=== PATIENT | male | born 1975 | race Caucasian/White ===

== ENCOUNTER 2021-02-07 13:34 | Inpatient (IN) ==
[2021-02-07] MEDS ORDERED: hydrALAZINE 20 mg/ml 1 ML Vial IV IV SLOW PU ONE (14:16)
[2021-02-07 15:40] LABS: Urine Appearance Cloudy; Urine Bilirubin Negative (Negative); Urine Blood 3+ (Negative); Urine Color Yellow; Urine Glucose Negative (Negative); Urine Ketones Negative (Negative); Urine Nitrite Negative (Negative); Urine Protein 2+(100 mg/dL) (Negative); Urine Urobilinogen Negative (Negative)
[2021-02-07 15:49] LABS: Urine Bacteria Absent (Absent); Urine Red Blood Cell 3+(>10/hpf) (Absent); Urine Squamous Epithelial Cell Present (Absent); Urine White Blood Cell 3+(>20/hpf) (Absent)
[2021-02-07 16:53] LABS: Hematocrit 23 % (42-52); Hemoglobin 7.5 g/dL (14.0-18.0); Mean Corpuscular HGB Conc 32 g/dL (31-36); Mean Corpuscular Hemoglobin 27 pg (27-31); Mean Corpuscular Volume 84 fL (80-94); Mean Platelet Volume 8.6 fL (7.4-10.4); Platelet Count 444 10^3/uL (150-450); Red Blood Count 2.74 10^6 /uL (4.18-5.48); Red Cell Distribution Width 17 % (10-15); White Blood Count 8.7 10^3/uL (3.5-10.8)
[2021-02-07 17:08] LABS: Ammonia 25 mcmol/L (16-53)
[2021-02-07 17:11] LABS: Albumin 2.6 g/dL (3.2-5.2); Albumin/Globulin Ratio 0.6 (1-3); Calcium 8.6 mg/dL (8.6-10.3); Globulin 4.3 g/dL (2-4); Magnesium 1.2 mg/dL (1.9-2.7); Total Bilirubin 0.3 mg/dL (0.2-1.0); Total Protein 6.9 g/dL (6.4-8.9)
[2021-02-07 17:12] LABS: Troponin I 0.01 ng/mL (<0.03)
[2021-02-07 17:14] LABS: Potassium 6.5 mmol/L (3.5-5.0)
[2021-02-07 17:16] LABS: Rapid COVID-19 Molecular Undetected (Undetected)
[2021-02-07 17:19] LABS: BNP 653 pg/mL (<=100)
[2021-02-07] MEDS ORDERED: cefTRIAXone 1 gm/50 mL NS BAG 1 GM/50 ML BAG IV ONE (17:24)
[2021-02-07 17:27] LABS: ABS Basophils 0.1 10^3/ul (0-0.2); ABS Eosinophils 0.1 10^3/ul (0-0.6); ABS Monocytes 1.1 10^3/ul (0-0.8); ABS Neutrophils 6.3 10^3/ul (1.5-7.7); Eosinophil % 1.7 %; Lymphocyte % 11.9 %
[2021-02-07] MEDS ORDERED: Magnesium Sulfate 2 gm BAG 2 GM/50 ML BAG IVPB ONE (17:27)
[2021-02-07] MEDS ORDERED: Dextrose 50% Syringe 50 ml 25 GM/50 ML SYRINGE IV PUSH ONE ×2 (17:28→17:29)
[2021-02-07] MEDS ORDERED: Sodium Bicarbonate 8.4% SYR 50 ml SYRINGE IV ONE (17:30)
[2021-02-07] MEDS: Patiromer POWDER 8.4 GM PAK PO ONE (19:37)
[2021-02-07 20:14] LABS: Calcium 8.5 mg/dL (8.6-10.3)
[2021-02-07 20:16] LABS: Potassium 5.4 mmol/L (3.5-5.0)
[2021-02-08] MEDS ORDERED: Lorazepam PYXIS KEY PRN ×3 (01:24→08:25)
[2021-02-08] MEDS ORDERED: LORazepam 2 mg VIAL 1 ml IV PUSH ONE ×4 (01:24→09:13)
[2021-02-08] MEDS ORDERED: cefTRIAXone 1 gm/50 mL NS BAG 1 GM/50 ML BAG ONE (01:30)
[2021-02-08 01:47] LABS: Calcium 8.8 mg/dL (8.6-10.3)
[2021-02-08 01:59] LABS: Potassium 6.1 mmol/L (3.5-5.0)
[2021-02-08] MEDS ORDERED: cefTRIAXone 1 gm/50 mL NS BAG 1 GM/50 ML BAG IVPB SCH (02:00)
[2021-02-08] MEDS ORDERED: Dextrose 50% Syringe 50 ml 25 GM/50 ML SYRINGE IV PUSH ONE ×3 (02:04→20:50)
[2021-02-08] MEDS ORDERED: Calcium Gluconate 1 GM/10 ML VIAL (in Pyxis) IV PUSH ONE (02:06)
[2021-02-08] MEDS ORDERED: Patiromer POWDER 8.4 GM PAK PO ONE (02:08)
[2021-02-08] MEDS ORDERED: SODIUM POLYSTYRENE SULFONATE PO SCH (02:15)
[2021-02-08] MEDS ORDERED: CALCIUM GLUCONATE 1GM/50ML NS BAG IV ONE (03:30)
[2021-02-08] MEDS ORDERED: Vancomycin 1,000 MG in NS 0.9% 250 ml 250 ML IVPB ONE (04:19)
[2021-02-08 04:26] LABS: Calcium 9.4 mg/dL (8.6-10.3)
[2021-02-08] MEDS ORDERED: NS 0.9% 1000 ml BAG 1,000 ML IV SCH (04:30)
[2021-02-08] MEDS ORDERED: NS 0.9% IV ONE (04:30)
[2021-02-08 04:42] LABS: Potassium 5.3 mmol/L (3.5-5.0)
[2021-02-08] MEDS ORDERED: Vancomycin per Pharmacy 1 EA NOTE FOLLOW UP SCH (05:00)
[2021-02-08 05:27] LABS: Hematocrit 23 % (42-52); Hemoglobin 7.6 g/dL (14.0-18.0); Mean Corpuscular HGB Conc 33 g/dL (31-36); Mean Corpuscular Hemoglobin 28 pg (27-31); Mean Corpuscular Volume 85 fL (80-94); Mean Platelet Volume 8.4 fL (7.4-10.4); Platelet Count 415 10^3/uL (150-450); Red Blood Count 2.76 10^6 /uL (4.18-5.48); Red Cell Distribution Width 17 % (10-15); White Blood Count 8.1 10^3/uL (3.5-10.8)
[2021-02-08 05:30] LABS: ABS Basophils 0.1 10^3/ul (0-0.2); ABS Monocytes 0.9 10^3/ul (0-0.8); Eosinophil % 0.5 %; Lymphocyte % 12.7 %
[2021-02-08 05:42] LABS: Magnesium 1.8 mg/dL (1.9-2.7)
[2021-02-08 05:58] LABS: C Reactive Protein 120.86 mg/L (<8.01)
[2021-02-08] MEDS: Patiromer POWDER 8.4 GM PAK PO ONE (06:11)
[2021-02-08] MEDS ORDERED: Magnesium Sulfate 2 gm BAG 2 GM/50 ML BAG IVPB ONE (07:19)
[2021-02-08] MEDS ORDERED: Cefepime 1 GM in Dextrose 1 GM/50 ML BAG IV SCH (07:30)
[2021-02-08 07:31] LABS: Calcium 8.9 mg/dL (8.6-10.3)
[2021-02-08 07:32] LABS: Potassium 5.9 mmol/L (3.5-5.0)
[2021-02-08] MEDS ORDERED: Lorazepam PYXIS KEY ONE (08:36)
[2021-02-08] MEDS ORDERED: Haloperidol 5 mg/ml SDV IV/IM 5 MG/ML AMP IV SLOW PU PRN (10:31)
[2021-02-08] MEDS ORDERED: Morphine 2 MG/ML SYRINGE IV PRN (10:41)
[2021-02-08] MEDS: Sodium Polystyrene ORAL.SUSP 15 GM/60 ML BTL PO ONE (10:48)
[2021-02-08] MEDS ORDERED: Sodium Bicarbonate 8.4% SYR 50 ml SYRINGE IV ONE (11:00)
[2021-02-08 11:44] LABS: Calcium 8.4 mg/dL (8.6-10.3); Potassium 5.4 mmol/L (3.5-5.0)
[2021-02-08 13:05] LABS: INR 1.26 (0.86-1.15)
[2021-02-08] MEDS ORDERED: fentaNYL 100 mcg/2 ml 50 MCG/ML VIAL ONE (15:12)
[2021-02-08] MEDS ORDERED: Midazolam 2 mg/2 ml VIAL 1 mg/ml 2 ml VIAL (2 mg) ONE (15:12)
[2021-02-08] MEDS ORDERED: Piperacillin/Tazobac ADVAN 3.375 GM in NS 0.9% 100 ml BAG 100 ML IV ONE (17:13)
[2021-02-08] MEDS ORDERED: Morphine 2 MG/ML SYRINGE IV ONE (17:22)
[2021-02-08] MEDS ORDERED: Morphine 2 MG/ML SYRINGE ONE (17:23)
[2021-02-08] MEDS ORDERED: Zosyn per Pharmacy NOTE FOLLOW UP SCH (18:00)
[2021-02-08 20:23] LABS: Urine Appearance Turbid; Urine Bilirubin Negative (Negative); Urine Blood 3+ (Negative); Urine Color Yellow; Urine Glucose Negative (Negative); Urine Ketones Negative (Negative); Urine Nitrite Negative (Negative); Urine Protein 2+(100 mg/dL) (Negative); Urine Specific Gravity 1.014 (1.002-1.030); Urine Urobilinogen Negative (Negative)
[2021-02-08] MEDS ORDERED: Atropine 0.1 MG/ML 10 ml SYR (1 mg) ONE (20:23)
[2021-02-08 20:29] LABS: Urine Bacteria 1+ (Absent); Urine Red Blood Cell 3+(>10/hpf) (Absent); Urine White Blood Cell 3+(>20/hpf) (Absent)
[2021-02-08 20:40] LABS: Calcium 8.7 mg/dL (8.6-10.3)
[2021-02-08 20:49] LABS: Potassium 6.3 mmol/L (3.5-5.0)
[2021-02-08] MEDS ORDERED: Sodium Bicarb 8.4% Vial 50 ML 150 MEQ in D5W 1000 ml BAG 850 ML IV SCH (21:00)
[2021-02-08] MEDS ORDERED: SODIUM ZIRCONIUM CYCLOSILICATE 10 GM PACKET PO SCH (21:00)
[2021-02-08] MEDS: Lactulose 30 ml UDC PO SCH (21:28)
[2021-02-08] MEDS: ZOSYN 3.375 GM Q12H per EXTENDED INFUSION IV SCH (23:07)
[2021-02-09 00:22] LABS: Magnesium 2.4 mg/dL (1.9-2.7)
[2021-02-09 00:26] LABS: Troponin I 0.01 ng/mL (<0.03)
[2021-02-09 00:28] LABS: Myoglobin 77.1 ng/mL (17.4-105.7)
[2021-02-09 01:11] LABS: Calcium 8.9 mg/dL (8.6-10.3)
[2021-02-09 01:23] LABS: Potassium 5.7 mmol/L (3.5-5.0)
[2021-02-09] MEDS ORDERED: Dextrose 50% Syringe 50 ml 25 GM/50 ML SYRINGE ONE (01:53)
[2021-02-09] MEDS: Dextrose 50% Syringe 50 ml 25 GM/50 ML SYRINGE IV PUSH PRN (02:01)
[2021-02-09 02:39] LABS: PCO2 Arterial 43 mmHg (35-45); PO2 Arterial 153 mmHg (80-100)
[2021-02-09 02:48] LABS: Hematocrit 22 % (42-52); Hemoglobin 7.2 g/dL (14.0-18.0); Mean Corpuscular HGB Conc 33 g/dL (31-36); Mean Corpuscular Hemoglobin 28 pg (27-31); Mean Corpuscular Volume 85 fL (80-94); Mean Platelet Volume 8.5 fL (7.4-10.4); Platelet Count 384 10^3/uL (150-450); Red Blood Count 2.53 10^6 /uL (4.18-5.48); Red Cell Distribution Width 18 % (10-15); White Blood Count 6.3 10^3/uL (3.5-10.8)
[2021-02-09 03:04] LABS: Calcium 8.6 mg/dL (8.6-10.3); Magnesium 2.2 mg/dL (1.9-2.7); Phosphorus 7.1 mg/dL (2.5-5.0)
[2021-02-09 03:06] LABS: Potassium 5.4 mmol/L (3.5-5.0)
[2021-02-09] MEDS ORDERED: Vancomycin Random Level NOTE FOLLOW UP ONE (05:00)
[2021-02-09] MEDS: SODIUM ZIRCONIUM CYCLOSILICATE 10 GM PACKET PO SCH ×3 (05:27→22:05)
[2021-02-09] MEDS ORDERED: Sodium Bicarb 8.4% Vial 50 ML 150 MEQ in D5W 1000 ml BAG 850 ML IV SCH (06:30)
[2021-02-09] MEDS: Lactulose 30 ml UDC PO SCH ×3 (07:59→22:11)
[2021-02-09] MEDS: Polyethylene Glycol 3350 17 GM PACKET PO SCH ×2 (07:59→08:03)
[2021-02-09] MEDS: Collagenase 250 units/gm OINT 1 tube TOPICAL SCH (08:00)
[2021-02-09] MEDS: ZOSYN 3.375 GM Q12H per EXTENDED INFUSION IV SCH ×2 (08:35→22:04)
[2021-02-09 08:39] LABS: Calcium 8.4 mg/dL (8.6-10.3); Potassium 5.4 mmol/L (3.5-5.0)
[2021-02-09] MEDS ORDERED: Lactated Ringers 500 ml BAG 500 ML IV ONE ×2 (08:56→16:51)
[2021-02-09] MEDS ORDERED: Cefepime 1 GM in Dextrose 1 GM/50 ML BAG IV SCH (09:00)
[2021-02-09 09:44] LABS: Calcium 8.5 mg/dL (8.6-10.3)
[2021-02-09 09:58] LABS: Potassium 5.2 mmol/L (3.5-5.0)
[2021-02-09 13:20] LABS: Calcium 8.3 mg/dL (8.6-10.3); Potassium 5.1 mmol/L (3.5-5.0)
[2021-02-09 18:44] LABS: Urine Creatinine Concentration 103.39 mg/dL
[2021-02-09 21:47] LABS: Calcium 8.1 mg/dL (8.6-10.3); Potassium 5.6 mmol/L (3.5-5.0)
[2021-02-09] MEDS ORDERED: Patiromer POWDER 8.4 GM PAK PO ONE (22:34)
[2021-02-10] MEDS: SODIUM ZIRCONIUM CYCLOSILICATE 10 GM PACKET PO SCH ×3 (05:21→15:45)
[2021-02-10] MEDS ORDERED: NS 0.9% IVPB SCH (09:00)
[2021-02-10] MEDS ORDERED: DAPTOMYCIN IVPB SCH (09:00)
[2021-02-10] MEDS: Lactulose 30 ml UDC PO SCH ×2 (09:47→21:42)
[2021-02-10] MEDS: Polyethylene Glycol 3350 17 GM PACKET PO SCH ×2 (09:47→21:47)
[2021-02-10 11:04] LABS: Anion Gap 12 mmol/L (2-11); Blood Urea Nitrogen 66 mg/dL (6-24); CO2 Carbon Dioxide 24 mmol/L (22-32); Calcium 7.7 mg/dL (8.6-10.3); Chloride 104 mmol/L (101-111); Glucose 108 mg/dL (70-100); Magnesium 1.9 mg/dL (1.9-2.7); Phosphorus 7.5 mg/dL (2.5-5.0); Potassium 4.7 mmol/L (3.5-5.0); Sodium 140 mmol/L (135-145)
[2021-02-10 11:11] LABS: % Iron Saturation 21 % (15-55); Iron 35 ug/dL (50-212); Total Iron Binding Capacity 164 mcg/dL (250-450); Transferrin 117 mg/dL (203-362); Unsaturated Iron Binding < 149 ug/dL
[2021-02-10 11:29] LABS: Ferritin 83.9 ng/mL (24-336)
[2021-02-10 11:31] LABS: Hematocrit 18 % (42-52); Mean Corpuscular HGB Conc 33 g/dL (31-36); Mean Corpuscular Hemoglobin 28 pg (27-31); Mean Corpuscular Volume 85 fL (80-94); Mean Platelet Volume 8.5 fL (7.4-10.4); Platelet Count 316 10^3/uL (150-450); Red Blood Count 2.12 10^6 /uL (4.18-5.48); Red Cell Distribution Width 17 % (10-15); White Blood Count 7.1 10^3/uL (3.5-10.8)
[2021-02-10] MEDS: Sodium Polystyrene ORAL.SUSP 15 GM/60 ML BTL PO ONE (15:44)
[2021-02-10 15:46] LABS: Hematocrit 21 % (42-52)
[2021-02-10] MEDS: ZOSYN 3.375 GM Q12H per EXTENDED INFUSION IV SCH (15:46)
[2021-02-10] MEDS ORDERED: Lactated Ringers 500 ml BAG 500 ML IV SCH (16:00)
[2021-02-10] MEDS ORDERED: Iron Sucrose 200 MG in NS 0.9% 100 ml BAG 100 ML IVPB ONE (17:22)
[2021-02-10] MEDS: Linezolid 600 MG IVPREMIX(*) 600 MG/300 ML BAG IVPB SCH (17:48)
[2021-02-10] MEDS ORDERED: Ciprofloxacin 400mg IVPREMIX 400 MG/200 ML BAG IVPB SCH ×2 (18:00→22:00)
[2021-02-10] MEDS: Collagenase 250 units/gm OINT 1 tube TOPICAL SCH (18:17)
[2021-02-10] MEDS ORDERED: ZOSYN 3.375 GM Q12H per EXTENDED INFUSION IV SCH (18:30)
[2021-02-10] MEDS ORDERED: Lactated Ringers 1000 ml BAG 1,000 ML IV ONE (20:06)
[2021-02-10 20:32] LABS: Hematocrit 21 % (42-52); Hemoglobin 7.3 g/dL (14.0-18.0)
[2021-02-10 20:37] LABS: PCO2 Arterial 48 mmHg (35-45); PO2 Arterial 90 mmHg (80-100)
[2021-02-10] MEDS ORDERED: Furosemide 40 mg/4 ml IV VIAL IV SLOW PU ONE (20:39)
[2021-02-10 20:49] LABS: Calcium 7.7 mg/dL (8.6-10.3); Potassium 4.8 mmol/L (3.5-5.0)
[2021-02-10] MEDS: Heparin 5000 UNITS/ML 1 mL VIAL SUBCUT SCH (21:42)
[2021-02-10 22:23] LABS: PCO2 Arterial 54 mmHg (35-45); PO2 Arterial 152 mmHg (80-100)
[2021-02-11] MEDS: Linezolid 600 MG IVPREMIX(*) 600 MG/300 ML BAG IVPB SCH ×2 (04:20→16:31)
[2021-02-11 04:38] LABS: Hematocrit 22 % (42-52); Mean Corpuscular HGB Conc 32 g/dL (31-36); Mean Corpuscular Hemoglobin 27 pg (27-31); Mean Corpuscular Volume 85 fL (80-94); Mean Platelet Volume 8.3 fL (7.4-10.4); Platelet Count 265 10^3/uL (150-450); Red Blood Count 2.55 10^6 /uL (4.18-5.48); Red Cell Distribution Width 17 % (10-15); White Blood Count 6.9 10^3/uL (3.5-10.8)
[2021-02-11 04:53] LABS: Calcium 7.7 mg/dL (8.6-10.3); Magnesium 1.8 mg/dL (1.9-2.7); Potassium 4.9 mmol/L (3.5-5.0)
[2021-02-11] MEDS: Heparin 5000 UNITS/ML 1 mL VIAL SUBCUT SCH ×3 (06:28→21:06)
[2021-02-11] MEDS: Collagenase 250 units/gm OINT 1 tube TOPICAL SCH (07:50)
[2021-02-11] MEDS: Lactulose 30 ml UDC PO SCH ×2 (07:50→21:06)
[2021-02-11] MEDS ORDERED: Cefepime 1 GM in Dextrose 1 GM/50 ML BAG IV SCH (08:00)
[2021-02-11] MEDS ORDERED: Cefepime ADVAN 1 GM in NS 0.9% 50 ML 50 ML IVPB SCH (08:00)
[2021-02-11] MEDS: Polyethylene Glycol 3350 17 GM PACKET PO SCH ×2 (08:23→20:57)
[2021-02-11] MEDS ORDERED: Ciprofloxacin 400mg IVPREMIX 400 MG/200 ML BAG IVPB SCH (09:00)
[2021-02-11] MEDS ORDERED: Zosyn per Pharmacy NOTE FOLLOW UP PRN (16:05)
[2021-02-11] MEDS ORDERED: ZOSYN 3.375 GM x ONE DOSE over 30 miuntes IV (17:00)
[2021-02-11] MEDS ORDERED: NS 0.9% 100 ml BAG 100 ML ONE (20:31)
[2021-02-11] MEDS: ZOSYN 3.375 GM Q12H per EXTENDED INFUSION IV SCH (21:14)
[2021-02-12 05:17] LABS: Hematocrit 23 % (42-52); Hemoglobin 7.5 g/dL (14.0-18.0); Mean Corpuscular HGB Conc 33 g/dL (31-36); Mean Corpuscular Hemoglobin 28 pg (27-31); Mean Corpuscular Volume 84 fL (80-94); Mean Platelet Volume 8.7 fL (7.4-10.4); Platelet Count 297 10^3/uL (150-450); Red Blood Count 2.68 10^6 /uL (4.18-5.48); Red Cell Distribution Width 17 % (10-15); White Blood Count 6.9 10^3/uL (3.5-10.8)
[2021-02-12 05:40] LABS: Calcium 7.9 mg/dL (8.6-10.3); Potassium 4.7 mmol/L (3.5-5.0)
[2021-02-12 05:56] LABS: ABS Basophils 0.1 10^3/ul (0-0.2); ABS Eosinophils 0.2 10^3/ul (0-0.6); ABS Monocytes 0.7 10^3/ul (0-0.8); ABS Neutrophils 4.8 10^3/ul (1.5-7.7); Eosinophil % 3.3 %; Lymphocyte % 15.1 %
[2021-02-12] MEDS: Linezolid 600 MG IVPREMIX(*) 600 MG/300 ML BAG IVPB SCH ×4 (07:46→21:44)
[2021-02-12] MEDS: Heparin 5000 UNITS/ML 1 mL VIAL SUBCUT SCH ×2 (07:54→14:10)
[2021-02-12] MEDS: Collagenase 250 units/gm OINT 1 tube TOPICAL SCH (07:55)
[2021-02-12] MEDS: Polyethylene Glycol 3350 17 GM PACKET PO SCH ×2 (07:55→21:40)
[2021-02-12] MEDS: Lactulose 30 ml UDC PO SCH ×2 (07:55→21:40)
[2021-02-12] MEDS: ZOSYN 3.375 GM Q12H per EXTENDED INFUSION IV SCH ×2 (10:08→22:30)
[2021-02-12] MEDS ORDERED: Furosemide 100 mg/10 ml IV VIAL IV ONE (11:39)
[2021-02-12] MEDS ORDERED: Furosemide 100 mg/10 ml IV VIAL ONE (11:42)
[2021-02-12] MEDS ORDERED: fentaNYL 100 mcg/2 ml 50 MCG/ML VIAL ONE (15:58)
[2021-02-12] MEDS ORDERED: NS 0.9% 100 ml BAG 100 ML ONE (21:35)
[2021-02-13 04:36] LABS: Hematocrit 24 % (42-52); Hemoglobin 7.8 g/dL (14.0-18.0); Mean Corpuscular HGB Conc 33 g/dL (31-36); Mean Corpuscular Hemoglobin 28 pg (27-31); Mean Corpuscular Volume 85 fL (80-94); Mean Platelet Volume 8.5 fL (7.4-10.4); Platelet Count 295 10^3/uL (150-450); Red Blood Count 2.79 10^6 /uL (4.18-5.48); Red Cell Distribution Width 17 % (10-15); White Blood Count 8.5 10^3/uL (3.5-10.8)
[2021-02-13 04:49] LABS: Magnesium 1.7 mg/dL (1.9-2.7); Phosphorus 7.3 mg/dL (2.5-5.0); Potassium 4.5 mmol/L (3.5-5.0)
[2021-02-13] MEDS ORDERED: Magnesium Sulfate IV 3 GM in NS 0.9% 100 ml BAG 100 ML IVPB ONE (05:38)
[2021-02-13] MEDS ORDERED: NS 0.9% 100 ml BAG 100 ML ONE (06:58)
[2021-02-13] MEDS ORDERED: Magnesium Sulfate 2 gm BAG 2 GM/50 ML BAG IVPB ONE (07:14)
[2021-02-13] MEDS: Collagenase 250 units/gm OINT 1 tube TOPICAL SCH (09:40)
[2021-02-13] MEDS: ZOSYN 3.375 GM Q12H per EXTENDED INFUSION IV SCH ×2 (09:41→21:57)
[2021-02-13] MEDS: Linezolid 600 MG IVPREMIX(*) 600 MG/300 ML BAG IVPB SCH ×2 (09:43→20:03)
[2021-02-13] MEDS: Lactulose 30 ml UDC PO SCH ×2 (12:02→20:03)
[2021-02-13] MEDS: Polyethylene Glycol 3350 17 GM PACKET PO SCH ×2 (12:03→22:07)
[2021-02-13] MEDS ORDERED: Heparin 5000 UNITS/ML 1 mL VIAL SUBCUT SCH (14:00)
[2021-02-14 08:57] LABS: Hematocrit 21 % (42-52); Mean Corpuscular HGB Conc 33 g/dL (31-36); Mean Corpuscular Hemoglobin 28 pg (27-31); Mean Corpuscular Volume 86 fL (80-94); Mean Platelet Volume 8.4 fL (7.4-10.4); Platelet Count 231 10^3/uL (150-450); Red Cell Distribution Width 17 % (10-15); White Blood Count 7.7 10^3/uL (3.5-10.8)
[2021-02-14] MEDS: ZOSYN 3.375 GM Q12H per EXTENDED INFUSION IV SCH ×2 (08:58→22:34)
[2021-02-14] MEDS: Lactulose 30 ml UDC PO SCH ×2 (09:00→20:11)
[2021-02-14] MEDS: Polyethylene Glycol 3350 17 GM PACKET PO SCH ×2 (09:00→20:11)
[2021-02-14] MEDS: Collagenase 250 units/gm OINT 1 tube TOPICAL SCH (09:01)
[2021-02-14] MEDS: Linezolid 600 MG IVPREMIX(*) 600 MG/300 ML BAG IVPB SCH (09:08)
[2021-02-14 09:28] LABS: Calcium 7.6 mg/dL (8.6-10.3); Magnesium 2.4 mg/dL (1.9-2.7); Potassium 4.5 mmol/L (3.5-5.0)
[2021-02-14 09:34] LABS: Phosphorus 7.1 mg/dL (2.5-5.0)
[2021-02-14 13:50] LABS: Hepatitis B Surface Antigen Nonreactive (Nonreactive)
[2021-02-14 14:07] LABS: Hepatitis B Surface Ab Not Immune (Immune)
[2021-02-14 14:08] LABS: Hepatitis C Antibody Negative (Negative)
[2021-02-15 04:44] LABS: Hematocrit 23 % (42-52); Hemoglobin 7.4 g/dL (14.0-18.0); Mean Corpuscular HGB Conc 33 g/dL (31-36); Mean Corpuscular Hemoglobin 28 pg (27-31); Mean Corpuscular Volume 85 fL (80-94); Mean Platelet Volume 8.2 fL (7.4-10.4); Platelet Count 243 10^3/uL (150-450); Red Blood Count 2.65 10^6 /uL (4.18-5.48); Red Cell Distribution Width 17 % (10-15); White Blood Count 8.9 10^3/uL (3.5-10.8)
[2021-02-15 04:59] LABS: Magnesium 2.3 mg/dL (1.9-2.7); Phosphorus 6.6 mg/dL (2.5-5.0); Potassium 4.5 mmol/L (3.5-5.0)
[2021-02-15] MEDS ORDERED: Furosemide 40 mg/4 ml IV VIAL IV SLOW PU ONE ×2 (07:49→08:45)
[2021-02-15] MEDS: Collagenase 250 units/gm OINT 1 tube TOPICAL SCH (08:53)
[2021-02-15] MEDS: ZOSYN 3.375 GM Q12H per EXTENDED INFUSION IV SCH ×2 (09:57→22:04)
[2021-02-15] MEDS ORDERED: Clindamycin 600 MG/D5W BAG IV ONE (10:30)
[2021-02-15] MEDS ORDERED: Midazolam 5 mg/5 ml VIAL 1 mg/ml 5 ml VIAL (5 mg) ONE (10:37)
[2021-02-15] MEDS ORDERED: fentaNYL 100 mcg/2 ml 50 MCG/ML VIAL ONE (10:37)
[2021-02-15] MEDS ORDERED: Heparin 1,000 UNIT/ML 10 ml (10,000 UNITS) CATHLAB/DIALYSIS ONE (10:53)
[2021-02-15] MEDS ORDERED: Lidocaine 1% VIAL 10 MG/ML VIAL ONE (10:54)
[2021-02-15] MEDS ORDERED: Heparin 2 UNITS/ML IVPREMIX 1,000 UNIT/500 ML BAG IV ONE (10:55)
[2021-02-15] MEDS ORDERED: Heparin 5000 UNITS/ML 1 mL VIAL ONE (11:24)
[2021-02-15 15:09] LABS: Hematocrit 26 % (42-52); Hemoglobin 8.5 g/dL (14.0-18.0); Mean Corpuscular HGB Conc 33 g/dL (31-36); Mean Corpuscular Hemoglobin 29 pg (27-31); Mean Corpuscular Volume 87 fL (80-94); Mean Platelet Volume 8.6 fL (7.4-10.4); Platelet Count 251 10^3/uL (150-450); Red Blood Count 2.96 10^6 /uL (4.18-5.48); Red Cell Distribution Width 18 % (10-15); White Blood Count 8.1 10^3/uL (3.5-10.8)
[2021-02-15 15:39] LABS: TB1 Ag minus Nil Result -0.01 IU/mL
[2021-02-15 15:42] LABS: QuantiferonTb Gold Plus Result Negative (Negative)
[2021-02-15 15:43] LABS: Activated Partial Thrombo Time 34.9 seconds (26.0-38.0); Fibrinogen 295.1 mg/dL (110.8-404.3); INR 1.15 (0.86-1.15)
[2021-02-15] MEDS ORDERED: fentaNYL 100 mcg/2 ml 50 MCG/ML VIAL IV SLOW PU ONE (16:09)
[2021-02-16 05:26] LABS: Hematocrit 24 % (42-52); Hemoglobin 7.7 g/dL (14.0-18.0); Mean Corpuscular HGB Conc 33 g/dL (31-36); Mean Corpuscular Hemoglobin 28 pg (27-31); Mean Corpuscular Volume 86 fL (80-94); Mean Platelet Volume 8.6 fL (7.4-10.4); Platelet Count 231 10^3/uL (150-450); Red Blood Count 2.72 10^6 /uL (4.18-5.48); Red Cell Distribution Width 18 % (10-15); White Blood Count 6.9 10^3/uL (3.5-10.8)
[2021-02-16 05:40] LABS: Calcium 7.8 mg/dL (8.6-10.3); Magnesium 2.1 mg/dL (1.9-2.7); Phosphorus 7.2 mg/dL (2.5-5.0); Potassium 4.5 mmol/L (3.5-5.0)
[2021-02-16] MEDS: Dextrose 50% Syringe 50 ml 25 GM/50 ML SYRINGE IV PUSH PRN (05:50)
[2021-02-16] MEDS: Collagenase 250 units/gm OINT 1 tube TOPICAL SCH (08:14)
[2021-02-16] MEDS: ZOSYN 3.375 GM Q12H per EXTENDED INFUSION IV SCH (09:49)
[2021-02-16 14:36] LABS: Rapid COVID-19 Molecular Undetected (Undetected)
[2021-02-16 14:41] VITALS: BP 132/82
== END 2021-02-16 18:16 | DRG 710 ==
LOC: ED 13:34 → SUATTDRO 02-08 01:00 → EDHOLD 02-08 01:00 → ICU 02-08 05:14 → MEDTELE 02-09 17:31 → ICU 02-10 21:24
PROVIDERS: ADMIT Internal Medicine; ATTEND Internal Medicine Critical Care Medicine

== ENCOUNTER 2021-02-19 05:45 | Observation (INO) ==
[2021-02-19 07:05] LABS: Hematocrit 25 % (42-52); Hemoglobin 7.9 g/dL (14.0-18.0); Mean Corpuscular HGB Conc 32 g/dL (31-36); Mean Corpuscular Hemoglobin 28 pg (27-31); Mean Corpuscular Volume 88 fL (80-94); Mean Platelet Volume 8.9 fL (7.4-10.4); Platelet Count 187 10^3/uL (150-450); Red Blood Count 2.78 10^6 /uL (4.18-5.48); Red Cell Distribution Width 18 % (10-15); White Blood Count 12.6 10^3/uL (3.5-10.8)
[2021-02-19 07:17] LABS: Activated Partial Thrombo Time 37.9 seconds (26.0-38.0); INR 1.21 (0.86-1.15)
[2021-02-19 07:26] LABS: ALT 9 U/L (7-52); AST 12 U/L (13-39); Albumin 2.7 g/dL (3.2-5.2); Albumin/Globulin Ratio 0.7 (1-3); Alkaline Phosphatase 99 U/L (35-149); Anion Gap 11 mmol/L (2-11); Blood Urea Nitrogen 51 mg/dL (6-24); C Reactive Protein 36.03 mg/L (<8.01); CO2 Carbon Dioxide 23 mmol/L (22-32); Calcium 8.2 mg/dL (8.6-10.3); Chloride 103 mmol/L (101-111); Globulin 4.1 g/dL (2-4); Glucose 116 mg/dL (70-100); Potassium 4.5 mmol/L (3.5-5.0); Sodium 137 mmol/L (135-145); Total Protein 6.8 g/dL (6.4-8.9)
[2021-02-19 07:31] LABS: Troponin I 0.03 ng/mL (<0.03)
[2021-02-19 07:32] LABS: Polychromasia 1+
[2021-02-19 07:33] LABS: ABS Basophils 0.1 10^3/ul (0-0.2); ABS Eosinophils 0.2 10^3/ul (0-0.6); ABS Lymphocytes 0.7 10^3/ul (1.0-4.8); ABS Monocytes 0.9 10^3/ul (0-0.8); ABS Neutrophils 10.7 10^3/ul (1.5-7.7); Basophilic Stippling 1+; Eosinophil % 1.4 %; Lymphocyte % 5.3 %; Nucleated Red Blood Cells % 0.1
[2021-02-19 09:04] LABS: Rapid COVID-19 Molecular Undetected (Undetected)
[2021-02-19 15:58] LABS: Hepatitis B Surface Antigen Nonreactive (Nonreactive)
[2021-02-19 16:16] LABS: Hepatitis B Surface Ab Not Immune (Immune)
[2021-02-19] MEDS: Collagenase 250 units/gm OINT 1 tube TOPICAL SCH (16:57)
[2021-02-19] MEDS: Heparin 1,000 UNIT/ML 10 ml (10,000 UNITS) CATHLAB/DIALYSIS DIALYSIS ONE ×4 (17:24→20:43)
[2021-02-19] MEDS: Lactulose 30 ml UDC PO SCH (21:42)
[2021-02-20 07:58] VITALS: BP 150/83
[2021-02-20] MEDS ORDERED: Polyethylene Glycol 3350 17 GM PACKET PO SCH (09:00)
[2021-02-20] MEDS: Lactulose 30 ml UDC PO SCH (09:12)
[2021-02-20] MEDS: Collagenase 250 units/gm OINT 1 tube TOPICAL SCH (09:18)
== END 2021-02-20 11:30 ==
LOC: MEDTELE 05:45 → ED 05:45 → MEDTELE 14:42
PROVIDERS: ADMIT Hospitalist; ATTEND Hospitalist

== ENCOUNTER 2021-02-26 07:25 | Inpatient (IN) ==
[2021-02-26] MEDS ORDERED: Lorazepam PYXIS KEY PRN (07:47)
[2021-02-26] MEDS ORDERED: LORazepam 2 mg VIAL 1 ml IV PUSH ONE (07:47)
[2021-02-26 08:50] LABS: ABS Basophils 0.1 10^3/ul (0-0.2); ABS Lymphocytes 0.7 10^3/ul (1.0-4.8); ABS Monocytes 0.7 10^3/ul (0-0.8); ABS Neutrophils 6.7 10^3/ul (1.5-7.7); Eosinophil % 0.5 %; Hematocrit 27 % (42-52); Hemoglobin 8.7 g/dL (14.0-18.0); Lymphocyte % 8.4 %; Mean Corpuscular HGB Conc 32 g/dL (31-36); Mean Corpuscular Hemoglobin 28 pg (27-31); Mean Corpuscular Volume 88 fL (80-94); Mean Platelet Volume 9.4 fL (7.4-10.4); Platelet Count 282 10^3/uL (150-450); Red Cell Distribution Width 19 % (10-15); White Blood Count 8.3 10^3/uL (3.5-10.8)
[2021-02-26 09:02] LABS: Acetaminophen < 15 mcg/mL; Salicylate < 2.50 mg/dL (<30)
[2021-02-26 09:10] LABS: ALT 13 U/L (7-52); AST 22 U/L (13-39); Albumin/Globulin Ratio 0.7 (1-3); Alkaline Phosphatase 95 U/L (35-149); Anion Gap 20 mmol/L (2-11); Blood Urea Nitrogen 35 mg/dL (6-24); CO2 Carbon Dioxide 21 mmol/L (22-32); Calcium 8.6 mg/dL (8.6-10.3); Chloride 104 mmol/L (101-111); Globulin 4.1 g/dL (2-4); Glucose 61 mg/dL (70-100); Potassium 4.2 mmol/L (3.5-5.0); Sodium 145 mmol/L (135-145); Total Protein 7.1 g/dL (6.4-8.9)
[2021-02-26 09:11] LABS: Troponin I 0.06 ng/mL (<0.03)
[2021-02-26] MEDS ORDERED: Dextrose 50% Syringe 50 ml 25 GM/50 ML SYRINGE IV PUSH ONE (09:11)
[2021-02-26 10:44] LABS: Urine Appearance Cloudy; Urine Bilirubin Negative (Negative); Urine Blood 3+ (Negative); Urine Color Yellow; Urine Glucose Negative (Negative); Urine Ketones 1+ (Negative); Urine Nitrite Negative (Negative); Urine Protein 3+(>=500 mg/dL) (Negative); Urine Urobilinogen Negative (Negative)
[2021-02-26 10:48] LABS: Urine Bacteria Absent (Absent); Urine Red Blood Cell 3+(>10/hpf) (Absent); Urine White Blood Cell 3+(>20/hpf) (Absent)
[2021-02-26] MEDS ORDERED: NS 0.9% 500 ml BAG 500 ML IV ONE (15:19)
[2021-02-26] MEDS ORDERED: Haloperidol 5 mg/ml SDV IV/IM 5 MG/ML AMP IV PRN (15:23)
[2021-02-26 16:33] LABS: Rapid COVID-19 Molecular Undetected (Undetected)
[2021-02-26] MEDS ORDERED: LORazepam 2 mg VIAL 1 ml ONE ×2 (16:48→17:04)
[2021-02-26] MEDS: LORazepam 2 mg VIAL 1 ml IV PUSH ONE ×2 (17:00→17:05)
[2021-02-26 18:43] LABS: Troponin I 0.03 ng/mL (<0.03)
[2021-02-26 18:51] LABS: ALT 11 U/L (7-52); AST 17 U/L (13-39); Albumin 2.7 g/dL (3.2-5.2); Albumin/Globulin Ratio 0.8 (1-3); Alkaline Phosphatase 77 U/L (35-149); Blood Urea Nitrogen 41 mg/dL (6-24); CO2 Carbon Dioxide 22 mmol/L (22-32); Chloride 110 mmol/L (101-111); Globulin 3.3 g/dL (2-4); Glucose 62 mg/dL (70-100); Potassium 4.2 mmol/L (3.5-5.0)
[2021-02-26 19:00] LABS: Anion Gap 17 mmol/L (2-11); Sodium 149 mmol/L (135-145)
[2021-02-26] MEDS: Lactulose 30 ml UDC PO SCH (22:56)
[2021-02-27 04:52] LABS: ABS Basophils 0.2 10^3/ul (0-0.2); ABS Eosinophils 0.2 10^3/ul (0-0.6); ABS Lymphocytes 1.1 10^3/ul (1.0-4.8); ABS Monocytes 0.6 10^3/ul (0-0.8); Eosinophil % 2.9 %; Hematocrit 24 % (42-52); Hemoglobin 7.3 g/dL (14.0-18.0); Lymphocyte % 17.7 %; Mean Corpuscular HGB Conc 31 g/dL (31-36); Mean Corpuscular Hemoglobin 27 pg (27-31); Mean Corpuscular Volume 88 fL (80-94); Mean Platelet Volume 8.6 fL (7.4-10.4); Platelet Count 247 10^3/uL (150-450); Red Blood Count 2.68 10^6 /uL (4.18-5.48); Red Cell Distribution Width 19 % (10-15); White Blood Count 5.9 10^3/uL (3.5-10.8)
[2021-02-27 05:08] LABS: Calcium 7.8 mg/dL (8.6-10.3); Potassium 4.2 mmol/L (3.5-5.0)
[2021-02-27] MEDS ORDERED: Dextrose 50% Syringe 50 ml 25 GM/50 ML SYRINGE IV PUSH PRN (05:32)
[2021-02-27] MEDS ORDERED: D5W 1000 ml BAG 1,000 ML IV SCH (06:00)
[2021-02-27 06:04] LABS: Magnesium 1.8 mg/dL (1.9-2.7); Phosphorus 9.8 mg/dL (2.5-5.0)
[2021-02-27] MEDS ORDERED: Magnesium Sulfate 2 gm BAG 2 GM/50 ML BAG IVPB ONE (06:07)
[2021-02-27] MEDS: Heparin 1,000 UNIT/ML 10 ml (10,000 UNITS) CATHLAB/DIALYSIS DIALYSIS ONE ×4 (08:25→12:17)
[2021-02-27] MEDS ORDERED: Morphine 2 MG/ML SYRINGE IV ONE (09:31)
[2021-02-27] MEDS: Lactulose 30 ml UDC PO SCH ×2 (12:14→19:39)
[2021-02-27] MEDS: Polyethylene Glycol 3350 17 GM PACKET PO SCH (12:14)
[2021-02-27] MEDS: Collagenase 250 units/gm OINT 1 tube TOPICAL SCH (12:15)
[2021-02-28] MEDS ORDERED: Lorazepam PYXIS KEY PRN ×3 (01:29→11:08)
[2021-02-28] MEDS ORDERED: LORazepam 2 mg VIAL 1 ml IV PUSH ONE ×3 (01:29→11:09)
[2021-02-28 06:21] LABS: Hematocrit 23 % (42-52); Hemoglobin 7.3 g/dL (14.0-18.0); Mean Corpuscular HGB Conc 32 g/dL (31-36); Mean Corpuscular Hemoglobin 28 pg (27-31); Mean Corpuscular Volume 86 fL (80-94); Mean Platelet Volume 8.8 fL (7.4-10.4); Platelet Count 237 10^3/uL (150-450); Red Blood Count 2.62 10^6 /uL (4.18-5.48); Red Cell Distribution Width 18 % (10-15); White Blood Count 5.5 10^3/uL (3.5-10.8)
[2021-02-28 06:39] LABS: Calcium 7.5 mg/dL (8.6-10.3); Magnesium 1.8 mg/dL (1.9-2.7); Phosphorus 4.2 mg/dL (2.5-5.0); Potassium 3.6 mmol/L (3.5-5.0)
[2021-02-28] MEDS: Polyethylene Glycol 3350 17 GM PACKET PO SCH (08:27)
[2021-02-28] MEDS: Lactulose 30 ml UDC PO SCH ×2 (08:28→19:45)
[2021-02-28] MEDS: Collagenase 250 units/gm OINT 1 tube TOPICAL SCH (08:28)
[2021-02-28] MEDS ORDERED: LORazepam 2 mg VIAL 1 ml IV PUSH SCH (14:00)
[2021-02-28] MEDS: LORazepam 2 mg VIAL 1 ml IV PUSH SCH ×2 (18:06→23:21)
[2021-03-01] MEDS: LORazepam 2 mg VIAL 1 ml IV PUSH SCH ×3 (05:15→18:10)
[2021-03-01 06:21] LABS: ABS Basophils 0.2 10^3/ul (0-0.2); ABS Eosinophils 0.3 10^3/ul (0-0.6); ABS Lymphocytes 1.4 10^3/ul (1.0-4.8); ABS Monocytes 0.7 10^3/ul (0-0.8); ABS Neutrophils 2.8 10^3/ul (1.5-7.7); Eosinophil % 5.9 %; Hematocrit 25 % (42-52); Hemoglobin 8.2 g/dL (14.0-18.0); Lymphocyte % 26.4 %; Mean Corpuscular HGB Conc 32 g/dL (31-36); Mean Corpuscular Hemoglobin 28 pg (27-31); Mean Corpuscular Volume 86 fL (80-94); Mean Platelet Volume 8.7 fL (7.4-10.4); Platelet Count 248 10^3/uL (150-450); Red Blood Count 2.95 10^6 /uL (4.18-5.48); Red Cell Distribution Width 18 % (10-15); White Blood Count 5.3 10^3/uL (3.5-10.8)
[2021-03-01 06:37] LABS: Calcium 8.1 mg/dL (8.6-10.3); Potassium 4.1 mmol/L (3.5-5.0)
[2021-03-01] MEDS: Polyethylene Glycol 3350 17 GM PACKET PO SCH (07:11)
[2021-03-01] MEDS: Lactulose 30 ml UDC PO SCH ×2 (07:14→19:41)
[2021-03-01] MEDS ORDERED: LORazepam 2 mg VIAL 1 ml IV PUSH ONE (07:28)
[2021-03-01] MEDS: Heparin 1,000 UNIT/ML 10 ml (10,000 UNITS) CATHLAB/DIALYSIS DIALYSIS ONE ×3 (11:30→18:03)
[2021-03-01] MEDS: Collagenase 250 units/gm OINT 1 tube TOPICAL SCH (12:00)
[2021-03-01] MEDS ORDERED: NS 0.9% 1000 ml BAG 1,000 ML IV SCH (16:15)
[2021-03-02] MEDS: LORazepam 2 mg VIAL 1 ml IV PUSH SCH ×3 (00:51→04:10)
[2021-03-02 09:08] LABS: Calcium 8.4 mg/dL (8.6-10.3); Magnesium 1.9 mg/dL (1.9-2.7); Potassium 4.3 mmol/L (3.5-5.0)
[2021-03-02] MEDS: Lactulose 30 ml UDC PO SCH ×2 (12:15→20:19)
[2021-03-02] MEDS: Polyethylene Glycol 3350 17 GM PACKET PO SCH (12:25)
[2021-03-02] MEDS ORDERED: Heparin 1,000 UNIT/ML 10 ml (10,000 UNITS) CATHLAB/DIALYSIS DIALYSIS ONE (14:00)
[2021-03-02] MEDS: Collagenase 250 units/gm OINT 1 tube TOPICAL SCH (18:06)
[2021-03-02 20:20] LABS: Hepatitis B Surface Antigen Nonreactive (Nonreactive)
[2021-03-02 20:38] LABS: Hepatitis B Surface Ab Not Immune (Immune)
[2021-03-03 10:22] LABS: C Reactive Protein 56.83 mg/L (<8.01)
[2021-03-03] MEDS: Collagenase 250 units/gm OINT 1 tube TOPICAL SCH (11:06)
[2021-03-03] MEDS: Lactulose 30 ml UDC PO SCH ×2 (11:06→19:51)
[2021-03-03] MEDS: Polyethylene Glycol 3350 17 GM PACKET PO SCH (11:06)
[2021-03-04] MEDS: Polyethylene Glycol 3350 17 GM PACKET PO SCH ×2 (08:39→09:21)
[2021-03-04] MEDS: Lactulose 30 ml UDC PO SCH ×2 (08:39→22:18)
[2021-03-04] MEDS: Collagenase 250 units/gm OINT 1 tube TOPICAL SCH (09:13)
[2021-03-04] MEDS: Heparin 1,000 UNIT/ML 10 ml (10,000 UNITS) CATHLAB/DIALYSIS DIALYSIS ONE (17:14)
[2021-03-04 20:20] LABS: Magnesium 1.6 mg/dL (1.9-2.7); Potassium 4.6 mmol/L (3.5-5.0)
[2021-03-04] MEDS ORDERED: Magnesium Sulfate 2 gm BAG 2 GM/50 ML BAG IVPB ONE (22:04)
[2021-03-05] MEDS: Lactulose 30 ml UDC PO SCH ×2 (08:39→21:05)
[2021-03-05] MEDS: Collagenase 250 units/gm OINT 1 tube TOPICAL SCH (08:42)
[2021-03-05] MEDS: Polyethylene Glycol 3350 17 GM PACKET PO SCH (08:43)
[2021-03-05 11:32] LABS: Rapid COVID-19 Molecular Undetected (Undetected)
[2021-03-05] MEDS ORDERED: Haloperidol 5 mg/ml SDV IV/IM 5 MG/ML AMP IM ONE (23:21)
[2021-03-05] MEDS ORDERED: Haloperidol 5 mg/ml SDV IV/IM 5 MG/ML AMP ONE ×2 (23:22→23:43)
[2021-03-05] MEDS: Haloperidol 5 mg/ml SDV IV/IM 5 MG/ML AMP IM PRN (23:47)
[2021-03-06] MEDS: Heparin 1,000 UNIT/ML 10 ml (10,000 UNITS) CATHLAB/DIALYSIS DIALYSIS ONE ×5 (02:51→12:15)
[2021-03-06 07:05] LABS: Calcium 8.6 mg/dL (8.6-10.3); Magnesium 2.1 mg/dL (1.9-2.7)
[2021-03-06 07:07] LABS: Potassium 5.2 mmol/L (3.5-5.0)
[2021-03-06] MEDS: Haloperidol 5 mg/ml SDV IV/IM 5 MG/ML AMP IM PRN (09:09)
[2021-03-06] MEDS ORDERED: Morphine 2 MG/ML SYRINGE IV ONE (09:24)
[2021-03-06] MEDS: Collagenase 250 units/gm OINT 1 tube TOPICAL SCH (15:22)
[2021-03-06] MEDS: Lactulose 30 ml UDC PO SCH ×2 (15:22→22:18)
[2021-03-06] MEDS: Polyethylene Glycol 3350 17 GM PACKET PO SCH (15:23)
[2021-03-06 19:17] LABS: Urine Appearance Turbid; Urine Bilirubin Negative (Negative); Urine Blood 2+ (Negative); Urine Color Yellow; Urine Glucose Negative (Negative); Urine Ketones Negative (Negative); Urine Nitrite Negative (Negative); Urine Protein 2+(100 mg/dL) (Negative); Urine Specific Gravity 1.016 (1.002-1.030); Urine Urobilinogen Negative (Negative)
[2021-03-06 19:24] LABS: Urine Bacteria Absent (Absent); Urine Red Blood Cell 3+(>10/hpf) (Absent); Urine White Blood Cell 3+(>20/hpf) (Absent)
[2021-03-07 05:57] LABS: ABS Basophils 0.1 10^3/ul (0-0.2); ABS Eosinophils 0.3 10^3/ul (0-0.6); ABS Lymphocytes 1.2 10^3/ul (1.0-4.8); ABS Monocytes 0.6 10^3/ul (0-0.8); ABS Neutrophils 2.7 10^3/ul (1.5-7.7); Eosinophil % 6.2 %; Hematocrit 26 % (42-52); Hemoglobin 8.6 g/dL (14.0-18.0); Lymphocyte % 24.7 %; Mean Corpuscular HGB Conc 33 g/dL (31-36); Mean Corpuscular Hemoglobin 28 pg (27-31); Mean Corpuscular Volume 86 fL (80-94); Platelet Count 309 10^3/uL (150-450); Red Blood Count 3.03 10^6 /uL (4.18-5.48); Red Cell Distribution Width 19 % (10-15)
[2021-03-07 06:11] LABS: Albumin 2.6 g/dL (3.2-5.2); Albumin/Globulin Ratio 0.8 (1-3); Calcium 8.3 mg/dL (8.6-10.3); Globulin 3.1 g/dL (2-4); Magnesium 1.9 mg/dL (1.9-2.7); Potassium 4.5 mmol/L (3.5-5.0); Total Bilirubin 0.4 mg/dL (0.2-1.0); Total Protein 5.7 g/dL (6.4-8.9)
[2021-03-07] MEDS: Lactulose 30 ml UDC PO SCH ×2 (08:32→22:01)
[2021-03-07] MEDS: Polyethylene Glycol 3350 17 GM PACKET PO SCH (08:32)
[2021-03-07] MEDS: Collagenase 250 units/gm OINT 1 tube TOPICAL SCH (09:21)
[2021-03-08 06:18] LABS: Calcium 8.1 mg/dL (8.6-10.3)
[2021-03-08] MEDS: Heparin 1,000 UNIT/ML 10 ml (10,000 UNITS) CATHLAB/DIALYSIS DIALYSIS ONE ×4 (08:45→11:24)
[2021-03-08] MEDS: Lactulose 30 ml UDC PO SCH (08:56)
[2021-03-08] MEDS: Polyethylene Glycol 3350 17 GM PACKET PO SCH (10:39)
[2021-03-08 11:29] VITALS: BP 126/79
[2021-03-08] MEDS: Collagenase 250 units/gm OINT 1 tube TOPICAL SCH (11:33)
== END 2021-03-08 13:21 | DRG 52 ==
LOC: ED 07:25 → EDHOLD 07:25 → SUATTDRO 15:16 → ICU 17:13 → OBSVTOIN 17:17 → ICU 17:19 → MEDTELE 02-28 01:30
PROVIDERS: ADMIT Internal Medicine; ATTEND Student in an Organized Health Care Education/Training Program

== ENCOUNTER 2021-04-06 14:14 | Inpatient (IN) ==
[2021-04-06] MEDS ORDERED: Vancomycin 1,000 MG in NS 0.9% 250 ml 250 ML IVPB ONE (15:52)
[2021-04-06] MEDS ORDERED: Cefepime 1 GM in Dextrose 1 GM/50 ML BAG IV ONE (15:53)
[2021-04-06] MEDS ORDERED: Iodixanol (CONTRAST) 320 MG/ML 100 ML SDV IV ONE (16:07)
[2021-04-06] MEDS ORDERED: Vancomycin 1,000 MG BAG/ADDV ONE (16:14)
[2021-04-06 16:43] LABS: ABS Basophils 0.1 10^3/ul (0-0.2); ABS Lymphocytes 0.4 10^3/ul (1.0-4.8); ABS Monocytes 0.8 10^3/ul (0-0.8); ABS Neutrophils 9.7 10^3/ul (1.5-7.7); Eosinophil % 0.4 %; Hematocrit 29 % (42-52); Hemoglobin 9.4 g/dL (14.0-18.0); Lymphocyte % 3.5 %; Mean Corpuscular HGB Conc 33 g/dL (31-36); Mean Corpuscular Hemoglobin 29 pg (27-31); Mean Corpuscular Volume 88 fL (80-94); Mean Platelet Volume 8.1 fL (7.4-10.4); Platelet Count 347 10^3/uL (150-450); Red Blood Count 3.26 10^6 /uL (4.18-5.48); Red Cell Distribution Width 19 % (10-15); White Blood Count 11.1 10^3/uL (3.5-10.8)
[2021-04-06 17:02] LABS: Albumin 3.2 g/dL (3.2-5.2); Albumin/Globulin Ratio 0.8 (1-3); Calcium 9.3 mg/dL (8.6-10.3); Magnesium 1.6 mg/dL (1.9-2.7); Total Bilirubin 0.4 mg/dL (0.2-1.0); Total Protein 7.2 g/dL (6.4-8.9); eGFR CKD-EPI 14.5 (>60)
[2021-04-06 17:04] LABS: Potassium 5.2 mmol/L (3.5-5.0)
[2021-04-06] MEDS ORDERED: Magnesium Sulfate 2 gm BAG 2 GM/50 ML BAG IVPB ONE (17:24)
[2021-04-06 18:21] LABS: C Reactive Protein 159.54 mg/L (<8.01)
[2021-04-06] MEDS ORDERED: SODIUM ZIRCONIUM CYCLOSILICATE 10 GM PACKET PO ONE (18:57)
[2021-04-06 20:14] LABS: Urine Appearance Turbid; Urine Bacteria Absent (Absent); Urine Bilirubin Negative (Negative); Urine Blood 2+ (Negative); Urine Glucose Negative (Negative); Urine Ketones Trace (Negative); Urine Nitrite Positive (Negative); Urine Protein 2+(100 mg/dL) (Negative); Urine Red Blood Cell 3+(>10/hpf) (Absent); Urine Specific Gravity 1.019 (1.002-1.030); Urine Squamous Epithelial Cell Present (Absent); Urine Urobilinogen Negative (Negative); Urine White Blood Cell 3+(>20/hpf) (Absent)
[2021-04-06 20:16] LABS: Urine Color Red
[2021-04-06] MEDS ORDERED: Vancomycin per Pharmacy 1 EA NOTE FOLLOW UP SCH (21:00)
[2021-04-06] MEDS: Lactulose 30 ml UDC PO SCH (23:35)
[2021-04-07 07:26] LABS: ABS Basophils 0.1 10^3/ul (0-0.2); ABS Lymphocytes 0.3 10^3/ul (1.0-4.8); ABS Monocytes 0.6 10^3/ul (0-0.8); ABS Neutrophils 7.6 10^3/ul (1.5-7.7); Hematocrit 25 % (42-52); Hemoglobin 8.6 g/dL (14.0-18.0); Lymphocyte % 3.7 %; Mean Corpuscular HGB Conc 34 g/dL (31-36); Mean Corpuscular Hemoglobin 30 pg (27-31); Mean Corpuscular Volume 88 fL (80-94); Platelet Count 261 10^3/uL (150-450); Red Blood Count 2.88 10^6 /uL (4.18-5.48); Red Cell Distribution Width 18 % (10-15); White Blood Count 8.5 10^3/uL (3.5-10.8)
[2021-04-07 07:41] LABS: Albumin 2.8 g/dL (3.2-5.2); Albumin/Globulin Ratio 0.8 (1-3); C Reactive Protein 206.21 mg/L (<8.01); Calcium 8.7 mg/dL (8.6-10.3); Globulin 3.5 g/dL (2-4); Magnesium 2.2 mg/dL (1.9-2.7); Potassium 4.7 mmol/L (3.5-5.0); Total Bilirubin 0.4 mg/dL (0.2-1.0); Total Protein 6.3 g/dL (6.4-8.9); eGFR CKD-EPI 10.5 (>60)
[2021-04-07] MEDS: Lactulose 30 ml UDC PO SCH ×2 (08:00→20:42)
[2021-04-07] MEDS: Collagenase 250 units/gm OINT 1 tube TOPICAL SCH (08:03)
[2021-04-07] MEDS: Polyethylene Glycol 3350 17 GM PACKET PO SCH (08:04)
[2021-04-07] MEDS ORDERED: HONEY 100% TOPICAL SCH (09:00)
[2021-04-07] MEDS ORDERED: SODIUM ZIRCONIUM CYCLOSILICATE 10 GM PACKET PO SCH (14:00)
[2021-04-07] MEDS ORDERED: SODIUM ZIRCONIUM CYCLOSILICATE 10 GM PACKET PO ONE (14:02)
[2021-04-07] MEDS: Cefepime 1 GM in Dextrose 1 GM/50 ML BAG IV SCH (20:41)
[2021-04-08] MEDS: SODIUM ZIRCONIUM CYCLOSILICATE 10 GM PACKET PO SCH (05:53)
[2021-04-08] MEDS ORDERED: Vancomycin Random Level NOTE FOLLOW UP ONE (06:00)
[2021-04-08 09:02] LABS: Hematocrit 25 % (42-52); Hemoglobin 8.4 g/dL (14.0-18.0); Mean Corpuscular HGB Conc 34 g/dL (31-36); Mean Corpuscular Hemoglobin 30 pg (27-31); Mean Corpuscular Volume 87 fL (80-94); Mean Platelet Volume 8.6 fL (7.4-10.4); Platelet Count 228 10^3/uL (150-450); Red Blood Count 2.82 10^6 /uL (4.18-5.48); Red Cell Distribution Width 19 % (10-15); White Blood Count 7.6 10^3/uL (3.5-10.8)
[2021-04-08 09:21] LABS: Albumin 2.7 g/dL (3.2-5.2); Albumin/Globulin Ratio 0.8 (1-3); Calcium 8.4 mg/dL (8.6-10.3); Globulin 3.5 g/dL (2-4); Magnesium 2.2 mg/dL (1.9-2.7); Potassium 3.9 mmol/L (3.5-5.0); Total Bilirubin 0.4 mg/dL (0.2-1.0); Total Protein 6.2 g/dL (6.4-8.9); eGFR CKD-EPI 8.4 (>60)
[2021-04-08 09:29] LABS: RBC Morphology Normal (Normal)
[2021-04-08 09:31] LABS: ABS Lymphocytes 0.9 10^3/ul (1.0-4.8); ABS Monocytes 0.8 10^3/ul (0-0.8); ABS Neutrophils 5.8 10^3/ul (1.5-7.7); Eosinophil % 0.6 %; Lymphocyte % 12.4 %
[2021-04-08 09:32] LABS: Vancomycin Random 15.4 mcg/mL
[2021-04-08] MEDS: Lactulose 30 ml UDC PO SCH ×2 (10:06→22:00)
[2021-04-08] MEDS: Polyethylene Glycol 3350 17 GM PACKET PO SCH (10:10)
[2021-04-08] MEDS: Collagenase 250 units/gm OINT 1 tube TOPICAL SCH (17:24)
[2021-04-08] MEDS ORDERED: Vancomycin 750 MG in NS 0.9% 250 ML IVPB ONE (19:30)
[2021-04-09] MEDS: Cefepime 1 GM in Dextrose 1 GM/50 ML BAG IV SCH (00:40)
[2021-04-09] MEDS ORDERED: Vancomycin Random Level NOTE FOLLOW UP ONE (06:00)
[2021-04-09] MEDS: SODIUM ZIRCONIUM CYCLOSILICATE 10 GM PACKET PO SCH (07:32)
[2021-04-09] MEDS ORDERED: Heparin *DIALYSIS* ONLY 1,000 UNITS/ML VIAL DIALYSIS ONE (07:43)
[2021-04-09] MEDS: Polyethylene Glycol 3350 17 GM PACKET PO SCH (08:52)
[2021-04-09] MEDS: Lactulose 30 ml UDC PO SCH ×2 (08:52→21:38)
[2021-04-09] MEDS: Collagenase 250 units/gm OINT 1 tube TOPICAL SCH (08:52)
[2021-04-09] MEDS ORDERED: Lidocaine 1% VIAL 10 MG/ML VIAL ONE (09:18)
[2021-04-09] MEDS ORDERED: Midazolam 10 mg/10 ml VIAL 1 mg/ml 10 ml VIAL (10 mg) IV SLOW PU ONE (09:30)
[2021-04-09 09:32] LABS: Albumin 2.7 g/dL (3.2-5.2); Albumin/Globulin Ratio 0.7 (1-3); Calcium 8.6 mg/dL (8.6-10.3); Globulin 3.8 g/dL (2-4); Magnesium 2.1 mg/dL (1.9-2.7); Potassium 3.8 mmol/L (3.5-5.0); Total Bilirubin 0.4 mg/dL (0.2-1.0); Total Protein 6.5 g/dL (6.4-8.9); eGFR CKD-EPI 7.6 (>60)
[2021-04-09] MEDS: Heparin 1,000 UNIT/ML 10 ml (10,000 UNITS) CATHLAB/DIALYSIS DIALYSIS ONE ×4 (10:55→14:05)
[2021-04-09 12:05] LABS: Hepatitis B Surface Antigen Nonreactive (Nonreactive)
[2021-04-09 12:22] LABS: Hepatitis B Surface Ab Not Immune (Immune)
[2021-04-09] MEDS ORDERED: fentaNYL 100 mcg/2 ml 50 MCG/ML VIAL ONE (15:53)
[2021-04-09] MEDS ORDERED: Midazolam 5 mg/5 ml VIAL 1 mg/ml 5 ml VIAL (5 mg) ONE (15:53)
[2021-04-09] MEDS ORDERED: Vancomycin 500 MG in NS 0.9% 250 ML IVPB ONE (17:00)
[2021-04-10] MEDS: SODIUM ZIRCONIUM CYCLOSILICATE 10 GM PACKET PO SCH (05:49)
[2021-04-10 06:54] LABS: ABS Basophils 0.1 10^3/ul (0-0.2); ABS Eosinophils 0.1 10^3/ul (0-0.6); ABS Lymphocytes 1.2 10^3/ul (1.0-4.8); ABS Monocytes 0.9 10^3/ul (0-0.8); ABS Neutrophils 4.1 10^3/ul (1.5-7.7); Eosinophil % 1.9 %; Hematocrit 25 % (42-52); Hemoglobin 8.4 g/dL (14.0-18.0); Lymphocyte % 18.4 %; Mean Corpuscular HGB Conc 34 g/dL (31-36); Mean Corpuscular Hemoglobin 29 pg (27-31); Mean Corpuscular Volume 87 fL (80-94); Mean Platelet Volume 9.2 fL (7.4-10.4); Platelet Count 233 10^3/uL (150-450); Red Blood Count 2.89 10^6 /uL (4.18-5.48); Red Cell Distribution Width 19 % (10-15); White Blood Count 6.4 10^3/uL (3.5-10.8)
[2021-04-10 07:11] LABS: Calcium 8.5 mg/dL (8.6-10.3); Potassium 3.5 mmol/L (3.5-5.0); eGFR CKD-EPI 15.8 (>60)
[2021-04-10] MEDS ORDERED: Midazolam 5 mg/5 ml VIAL 1 mg/ml 5 ml VIAL (5 mg) ONE (07:49)
[2021-04-10] MEDS ORDERED: fentaNYL 100 mcg/2 ml 50 MCG/ML VIAL ONE (07:49)
[2021-04-10] MEDS: Lactulose 30 ml UDC PO SCH ×2 (13:05→20:46)
[2021-04-10] MEDS: Collagenase 250 units/gm OINT 1 tube TOPICAL SCH (13:11)
[2021-04-10] MEDS: Polyethylene Glycol 3350 17 GM PACKET PO SCH (13:12)
[2021-04-11] MEDS: SODIUM ZIRCONIUM CYCLOSILICATE 10 GM PACKET PO SCH (05:16)
[2021-04-11] MEDS ORDERED: Vancomycin Random Level NOTE FOLLOW UP ONE (06:00)
[2021-04-11 06:25] LABS: ABS Eosinophils 0.1 10^3/ul (0-0.6); ABS Lymphocytes 1.3 10^3/ul (1.0-4.8); ABS Monocytes 0.7 10^3/ul (0-0.8); ABS Neutrophils 4.4 10^3/ul (1.5-7.7); Eosinophil % 2.2 %; Hematocrit 24 % (42-52); Hemoglobin 7.9 g/dL (14.0-18.0); Lymphocyte % 19.9 %; Mean Corpuscular HGB Conc 33 g/dL (31-36); Mean Corpuscular Hemoglobin 29 pg (27-31); Mean Corpuscular Volume 87 fL (80-94); Platelet Count 231 10^3/uL (150-450); Red Blood Count 2.74 10^6 /uL (4.18-5.48); Red Cell Distribution Width 20 % (10-15); White Blood Count 6.6 10^3/uL (3.5-10.8)
[2021-04-11 06:34] LABS: Calcium 8.2 mg/dL (8.6-10.3); Potassium 3.4 mmol/L (3.5-5.0); eGFR CKD-EPI 11.8 (>60)
[2021-04-11 06:41] LABS: Vancomycin Random 22.6 mcg/mL
[2021-04-11] MEDS ORDERED: Midazolam 5 mg/5 ml VIAL 1 mg/ml 5 ml VIAL (5 mg) ONE (08:02)
[2021-04-11] MEDS ORDERED: Lidocaine 1% VIAL 10 MG/ML VIAL ONE (08:02)
[2021-04-11] MEDS ORDERED: fentaNYL 100 mcg/2 ml 50 MCG/ML VIAL ONE (08:02)
[2021-04-11] MEDS ORDERED: Heparin 2 UNITS/ML IVPREMIX 1,000 UNIT/500 ML BAG IV ONE (08:02)
[2021-04-11] MEDS: Lactulose 30 ml UDC PO SCH ×2 (10:03→20:09)
[2021-04-11] MEDS: Heparin 1,000 UNIT/ML 10 ml (10,000 UNITS) CATHLAB/DIALYSIS DIALYSIS ONE ×4 (10:05→13:11)
[2021-04-11] MEDS: Polyethylene Glycol 3350 17 GM PACKET PO SCH (11:44)
[2021-04-11] MEDS: Collagenase 250 units/gm OINT 1 tube TOPICAL SCH (14:23)
[2021-04-11] MEDS: Vancomycin 500 MG in NS 0.9% 250 ML IVPB SCH (17:56)
[2021-04-12 09:14] LABS: ABS Basophils 0.1 10^3/ul (0-0.2); ABS Eosinophils 0.2 10^3/ul (0-0.6); ABS Lymphocytes 1.6 10^3/ul (1.0-4.8); ABS Monocytes 0.7 10^3/ul (0-0.8); ABS Neutrophils 5.6 10^3/ul (1.5-7.7); Eosinophil % 2.4 %; Hematocrit 28 % (42-52); Hemoglobin 9.3 g/dL (14.0-18.0); Lymphocyte % 19.3 %; Mean Corpuscular HGB Conc 34 g/dL (31-36); Mean Corpuscular Hemoglobin 30 pg (27-31); Mean Corpuscular Volume 88 fL (80-94); Mean Platelet Volume 8.5 fL (7.4-10.4); Nucleated Red Blood Cells % 0.1; Platelet Count 306 10^3/uL (150-450); Red Blood Count 3.17 10^6 /uL (4.18-5.48); Red Cell Distribution Width 18 % (10-15); White Blood Count 8.1 10^3/uL (3.5-10.8)
[2021-04-12 09:31] LABS: Albumin/Globulin Ratio 0.7 (1-3); Calcium 8.8 mg/dL (8.6-10.3); Globulin 4.1 g/dL (2-4); Potassium 4.2 mmol/L (3.5-5.0); Total Bilirubin 0.4 mg/dL (0.2-1.0); Total Protein 7.1 g/dL (6.4-8.9); eGFR CKD-EPI 16.5 (>60)
[2021-04-12] MEDS: Lactulose 30 ml UDC PO SCH ×2 (09:45→21:13)
[2021-04-12] MEDS: Polyethylene Glycol 3350 17 GM PACKET PO SCH (09:50)
[2021-04-12] MEDS: Collagenase 250 units/gm OINT 1 tube TOPICAL SCH (09:50)
[2021-04-13 05:36] LABS: ABS Basophils 0.1 10^3/ul (0-0.2); ABS Eosinophils 0.3 10^3/ul (0-0.6); ABS Monocytes 0.6 10^3/ul (0-0.8); ABS Neutrophils 7.9 10^3/ul (1.5-7.7); Eosinophil % 2.6 %; Hematocrit 25 % (42-52); Hemoglobin 8.1 g/dL (14.0-18.0); Lymphocyte % 9.7 %; Mean Corpuscular HGB Conc 33 g/dL (31-36); Mean Corpuscular Hemoglobin 29 pg (27-31); Mean Corpuscular Volume 87 fL (80-94); Mean Platelet Volume 8.1 fL (7.4-10.4); Platelet Count 338 10^3/uL (150-450); Red Blood Count 2.83 10^6 /uL (4.18-5.48); Red Cell Distribution Width 19 % (10-15); White Blood Count 9.8 10^3/uL (3.5-10.8)
[2021-04-13 05:57] LABS: Calcium 8.5 mg/dL (8.6-10.3); Magnesium 1.9 mg/dL (1.9-2.7); Phosphorus 2.4 mg/dL (2.5-5.0); Potassium 4.5 mmol/L (3.5-5.0); eGFR CKD-EPI 11.4 (>60)
[2021-04-13] MEDS: Lactulose 30 ml UDC PO SCH ×2 (08:13→20:37)
[2021-04-13] MEDS: Polyethylene Glycol 3350 17 GM PACKET PO SCH (08:14)
[2021-04-13] MEDS: Collagenase 250 units/gm OINT 1 tube TOPICAL SCH (08:14)
[2021-04-13] MEDS: Heparin 1,000 UNIT/ML 10 ml (10,000 UNITS) CATHLAB/DIALYSIS DIALYSIS PRN ×4 (09:04→12:31)
[2021-04-13] MEDS: Vancomycin 500 MG in NS 0.9% 250 ML IVPB SCH (16:51)
[2021-04-14] MEDS: Lactulose 30 ml UDC PO SCH ×2 (09:22→20:15)
[2021-04-14] MEDS: Polyethylene Glycol 3350 17 GM PACKET PO SCH (09:22)
[2021-04-14] MEDS: Collagenase 250 units/gm OINT 1 tube TOPICAL SCH (09:24)
[2021-04-15] MEDS: Lactulose 30 ml UDC PO SCH ×2 (08:16→21:05)
[2021-04-15] MEDS: Collagenase 250 units/gm OINT 1 tube TOPICAL SCH (08:17)
[2021-04-15] MEDS: Polyethylene Glycol 3350 17 GM PACKET PO SCH (08:17)
[2021-04-16] MEDS: Heparin 1,000 UNIT/ML 10 ml (10,000 UNITS) CATHLAB/DIALYSIS DIALYSIS PRN ×5 (09:03→12:47)
[2021-04-16] MEDS: Collagenase 250 units/gm OINT 1 tube TOPICAL SCH (13:19)
[2021-04-16] MEDS: Polyethylene Glycol 3350 17 GM PACKET PO SCH (13:20)
[2021-04-16] MEDS: Lactulose 30 ml UDC PO SCH ×2 (13:23→20:14)
[2021-04-16] MEDS: Vancomycin 500 MG in NS 0.9% 250 ML IVPB SCH (17:03)
[2021-04-17 07:38] LABS: Hematocrit 27 % (42-52); Hemoglobin 8.9 g/dL (14.0-18.0); Mean Corpuscular HGB Conc 33 g/dL (31-36); Mean Corpuscular Hemoglobin 29 pg (27-31); Mean Corpuscular Volume 88 fL (80-94); Mean Platelet Volume 7.9 fL (7.4-10.4); Platelet Count 404 10^3/uL (150-450); Red Blood Count 3.04 10^6 /uL (4.18-5.48); Red Cell Distribution Width 18 % (10-15); White Blood Count 6.7 10^3/uL (3.5-10.8)
[2021-04-17 07:55] LABS: Calcium 8.7 mg/dL (8.6-10.3); Potassium 4.9 mmol/L (3.5-5.0)
[2021-04-17 08:16] LABS: ABS Basophils 0.1 10^3/ul (0-0.2); ABS Eosinophils 0.2 10^3/ul (0-0.6); ABS Monocytes 0.7 10^3/ul (0-0.8); ABS Neutrophils 3.6 10^3/ul (1.5-7.7); Eosinophil % 3.1 %; Lymphocyte % 30.6 %
[2021-04-17 08:22] LABS: Anisocytosis 2+
[2021-04-17] MEDS: Lactulose 30 ml UDC PO SCH ×2 (09:07→22:05)
[2021-04-17] MEDS: Polyethylene Glycol 3350 17 GM PACKET PO SCH (09:07)
[2021-04-17] MEDS: Collagenase 250 units/gm OINT 1 tube TOPICAL SCH (09:07)
[2021-04-18 09:30] LABS: C Reactive Protein 33.11 mg/L (<8.01); Calcium 8.2 mg/dL (8.6-10.3); eGFR CKD-EPI 11.7 (>60)
[2021-04-18 09:32] LABS: Potassium 5.1 mmol/L (3.5-5.0); Troponin I 0.01 ng/mL (<0.03)
[2021-04-18] MEDS: Lactulose 30 ml UDC PO SCH ×2 (09:35→22:44)
[2021-04-18] MEDS: Polyethylene Glycol 3350 17 GM PACKET PO SCH (09:40)
[2021-04-18] MEDS: Collagenase 250 units/gm OINT 1 tube TOPICAL SCH (09:40)
[2021-04-18] MEDS: Vancomycin 500 MG in NS 0.9% 250 ML IVPB SCH (18:46)
[2021-04-19] MEDS: Lactulose 30 ml UDC PO SCH (09:46)
[2021-04-19] MEDS: Polyethylene Glycol 3350 17 GM PACKET PO SCH (09:55)
[2021-04-19] MEDS: Heparin 1,000 UNIT/ML 10 ml (10,000 UNITS) CATHLAB/DIALYSIS DIALYSIS ONE ×5 (10:00→14:54)
[2021-04-19 13:22] LABS: Rapid COVID-19 Molecular Undetected (Undetected)
[2021-04-19 14:58] VITALS: BP 109/59
[2021-04-19] MEDS: Collagenase 250 units/gm OINT 1 tube TOPICAL SCH (15:13)
== END 2021-04-19 16:55 | DRG 466 ==
LOC: ED 14:14 → EDHOLD 20:42 → SUATTDRO 20:42 → MEDTELE 21:36 → SSU 04-18 02:38
PROVIDERS: ADMIT Student in an Organized Health Care Education/Training Program; ATTEND Hospitalist

== ENCOUNTER 2022-05-20 02:50 | Inpatient (IN) ==
[2022-05-20] MEDS ORDERED: Lactated Ringers 1000 ml BAG 1,000 ML IV ONE (03:17)
[2022-05-20] MEDS ORDERED: cefTRIAXone 1 gm/50 mL D5W 1 GM/50 ML BAG IV ONE (03:21)
[2022-05-20 04:09] LABS: ABS Lymphocytes 0.6 10^3/ul (1.0-4.8); ABS Monocytes 0.9 10^3/ul (0-0.8); ABS Neutrophils 10.3 10^3/ul (1.5-7.7); Eosinophil % 0.4 %; Hematocrit 28 % (42-52); Hemoglobin 9.2 g/dL (14.0-18.0); Lymphocyte % 5.5 %; Mean Corpuscular HGB Conc 33 g/dL (31-36); Mean Corpuscular Hemoglobin 30 pg (27-31); Mean Corpuscular Volume 93 fL (80-94); Mean Platelet Volume 10.4 fL (7.4-10.4); Platelet Count 156 10^3/uL (150-450); Red Blood Count 3.02 10^6 /uL (4.18-5.48); Red Cell Distribution Width 17 % (10-15); White Blood Count 11.9 10^3/uL (3.5-10.8)
[2022-05-20 04:16] LABS: Activated Partial Thrombo Time 36.9 seconds (26.0-38.0); INR 1.71 (0.88-1.18)
[2022-05-20 04:24] LABS: Albumin 2.7 g/dL (3.2-5.2); Albumin/Globulin Ratio 1.1 (1-3); C Reactive Protein 199.08 mg/L (<8.01); Calcium 8.4 mg/dL (8.6-10.3); Creatinine, Serum 4.89 mg/dL (0.67-1.17); Globulin 2.4 g/dL (2-4); Potassium 3.7 mmol/L (3.5-5.0); Total Bilirubin 0.5 mg/dL (0.2-1.0); Total Protein 5.1 g/dL (6.4-8.9)
[2022-05-20 05:24] LABS: High Sensitivity Troponin 1 Hr 11 pg/mL (<20)
[2022-05-20 09:45] LABS: Urine Appearance Cloudy; Urine Bacteria 3+ (Absent); Urine Bilirubin Negative (Negative); Urine Blood 3+ (Negative); Urine Glucose Negative (Negative); Urine Ketones Negative (Negative); Urine Nitrite Negative (Negative); Urine Protein 3+(>=500 mg/dL) (Negative); Urine Red Blood Cell 3+(>10/hpf) (Absent); Urine Specific Gravity 1.008 (1.002-1.030); Urine Urobilinogen Negative (Negative); Urine White Blood Cell 3+(>20/hpf) (Absent)
[2022-05-20 10:07] LABS: Urine Color Red
[2022-05-20] MEDS ORDERED: Albuterol HFA INHALER 8 gm MDI INH PRN (12:59)
[2022-05-20] MEDS ORDERED: Zinc Oxide 16% PASTE (Butt Paste) 30 gm TUBE TOPICAL SCH (14:00)
[2022-05-20] MEDS: ZINC OXIDE 20% TOPICAL SCH ×2 (14:37→22:11)
[2022-05-20] MEDS ORDERED: NS 0.9% 1000 ml BAG 100 ML IV PRN (15:34)
[2022-05-20] MEDS ORDERED: NS 0.9% 1000 ml BAG 200 ML IV PRN (15:34)
[2022-05-20] MEDS ORDERED: Albumin Human 25% 25 GM/100 ML BTL IV PRN (15:34)
[2022-05-21 06:00] LABS: Hematocrit 27 % (42-52); Hemoglobin 9.2 g/dL (14.0-18.0); Mean Corpuscular HGB Conc 34 g/dL (31-36); Mean Corpuscular Hemoglobin 32 pg (27-31); Mean Corpuscular Volume 92 fL (80-94); Mean Platelet Volume 10.5 fL (7.4-10.4); Platelet Count 122 10^3/uL (150-450); Red Cell Distribution Width 16 % (10-15); White Blood Count 5.7 10^3/uL (3.5-10.8)
[2022-05-21 06:21] LABS: Calcium 8.4 mg/dL (8.6-10.3); Creatinine, Serum 6.18 mg/dL (0.67-1.17); Potassium 4.5 mmol/L (3.5-5.0); eGFR CKD-EPI 10.6 (>60)
[2022-05-21 06:40] LABS: ABS Eosinophils 0.3 10^3/ul (0-0.6); ABS Neutrophils 3.4 10^3/ul (1.5-7.7); Anisocytosis 1+; Eosinophil % 5.2 %; Lymphocyte % 17.7 %; Nucleated Red Blood Cells % 0.1
[2022-05-21] MEDS: Heparin 1,000 UNIT/ML 10 ml (10,000 UNITS) CATHLAB/DIALYSIS DIALYSIS ONE ×6 (07:30→13:25)
[2022-05-21] MEDS ORDERED: cefTRIAXone 1 gm/50 mL D5W 1 GM/50 ML BAG IV SCH (09:00)
[2022-05-21] MEDS: ZINC OXIDE 20% TOPICAL SCH ×2 (09:05→15:11)
[2022-05-21] MEDS ORDERED: Collagenase 250 units/gm OINT 1 tube TOPICAL SCH (14:00)
[2022-05-21 15:30] VITALS: BP 99/64
== END 2022-05-21 18:45 | DRG 720 ==
LOC: ED 02:50 → EDHOLD 10:25 → MED 13:16
PROVIDERS: ADMIT Internal Medicine; ATTEND Internal Medicine

== ENCOUNTER 2022-09-03 21:24 | Inpatient (IN) ==
[2022-09-03] MEDS ORDERED: NS 0.9% 1000 ml BAG 1,000 ML IV ONE (21:54)
[2022-09-03] MEDS ORDERED: CALCIUM GLUCONATE 1GM/50ML NS BAG IV ONE (22:00)
[2022-09-03] MEDS ORDERED: Lactated Ringers 1000 ml BAG 1,000 ML IV ONE (22:14)
[2022-09-03 22:20] LABS: Hematocrit 33.3 % (38-53); Hemoglobin 11.3 g/dL (13.2-16.3); Mean Corpuscular Hemoglobin 30.9 pg (27-33); Mean Platelet Volume 10.4 fL (7.5-11.2); Platelet Count 163 10^3/uL (150-450); Red Blood Count 3.66 10^6/uL (4.06-5.63); White Blood Count 10.9 10^3/uL (3.6-10.2)
[2022-09-03] MEDS ORDERED: Dextrose 50% Syringe 50 ml 25 GM/50 ML SYRINGE IV PUSH ONE (22:23)
[2022-09-03 22:41] LABS: Albumin 3.7 g/dL (3.2-5.2); Albumin/Globulin Ratio 1.3 (1-3); Creatinine, Serum 8.23 mg/dL (0.67-1.17); Globulin 2.8 g/dL (2-4); Magnesium 2.2 mg/dL (1.9-2.7); Potassium 5.2 mmol/L (3.5-5.0); Total Bilirubin 0.5 mg/dL (0.2-1.0); Total Protein 6.5 g/dL (6.4-8.9); eGFR CKD-EPI 7.4 (>60)
[2022-09-03 22:55] LABS: TSH Ultra Thyroid Stim Horm 3.37 mcIU/mL (0.34-5.60)
[2022-09-03 22:59] LABS: ABS Basophils 0.1 10^3/uL (0.0-0.1); ABS Eosinophils 0.3 10^3/uL (0.0-0.5); ABS Lymphocytes 1.8 10^3/uL (1.0-4.8); ABS Monocytes 1.6 10^3/uL (0.0-1.1); ABS Neutrophils 7.2 10^3/uL (1.5-7.6); Eosinophil % 2.4 %; Lymphocyte % 16.6 %
[2022-09-03 23:32] LABS: Urine Appearance Cloudy; Urine Bilirubin Negative (Negative); Urine Blood 1+ (Negative); Urine Color Yellow; Urine Glucose Negative (Negative); Urine Ketones Negative (Negative); Urine Nitrite Negative (Negative); Urine Protein 2+(100 mg/dL) (Negative); Urine Specific Gravity 1.008 (1.002-1.030); Urine Urobilinogen Negative (Negative)
[2022-09-03 23:35] LABS: Urine Amorphous Crystals Present (Absent); Urine Bacteria 1+ (Absent); Urine Red Blood Cell 2+(6-10/hpf) (Absent); Urine Squamous Epithelial Cell Present (Absent); Urine White Blood Cell 2+(11-20/hpf) (Absent); Urine Yeast Present (Absent)
[2022-09-03 23:43] LABS: High Sensitivity Troponin 1 Hr 12 pg/mL (<20)
[2022-09-04] MEDS ORDERED: NS 0.9% 1000 ml BAG 1,000 ML IV ONE (00:11)
[2022-09-04] MEDS ORDERED: Furosemide 40 mg/4 ml IV VIAL IV ONE (01:16)
[2022-09-04 01:18] LABS: PCO2 Arterial 55 mmHg (35-45); PO2 Arterial 67 mmHg (80-100)
[2022-09-04] MEDS ORDERED: LORazepam 2 mg VIAL 1 ml IV PUSH ONE ×3 (02:01→10:29)
[2022-09-04] MEDS ORDERED: Lorazepam PYXIS KEY PRN ×3 (02:01→10:29)
[2022-09-04] MEDS ORDERED: Ondansetron 4 mg VIAL 2 MG/ML 2 ml VIAL IV PRN (02:01)
[2022-09-04 02:28] LABS: Creatinine, Serum 7.56 mg/dL (0.67-1.17); Potassium 5.1 mmol/L (3.5-5.0); eGFR CKD-EPI 8.2 (>60)
[2022-09-04] MEDS ORDERED: NS 0.9% 1000 ml BAG 100 ML IV PRN (07:30)
[2022-09-04] MEDS ORDERED: Albumin Human 25% 25 GM/100 ML BTL IV PRN (07:30)
[2022-09-04] MEDS ORDERED: NS 0.9% 1000 ml BAG 200 ML IV PRN (07:30)
[2022-09-04] MEDS ORDERED: cefTRIAXone 1 gm/50 mL D5W 1 GM/50 ML BAG IV SCH (08:00)
[2022-09-04] MEDS ORDERED: Norepinephrine 16MCG/ML BAGD5W 4,000 MCG/250 ML BAG IV SCH (09:00)
[2022-09-04] MEDS ORDERED: Piperacillin/Tazobac ADVAN 3.375 GM in NS 0.9% 100 ml BAG 100 ML IV ONE (09:00)
[2022-09-04] MEDS ORDERED: Zosyn per Pharmacy NOTE FOLLOW UP SCH (09:00)
[2022-09-04] MEDS ORDERED: Norepinephrine 16MCG/ML BAGD5W 4,000 MCG/250 ML BAG IV ONE (09:04)
[2022-09-04] MEDS ORDERED: Iodixanol (CONTRAST) 320 MG/ML 100 ML SDV IV ONE (09:05)
[2022-09-04] MEDS ORDERED: LORazepam 2 mg VIAL 1 ml ONE (09:12)
[2022-09-04] MEDS: Heparin 1,000 UNIT/ML 10 ml (10,000 UNITS) CATHLAB/DIALYSIS DIALYSIS SCH ×4 (10:30→13:43)
[2022-09-04] MEDS ORDERED: Dextrose 50% VIAL 50 ml IV PRN (13:39)
[2022-09-04] MEDS: ZOSYN 3.375 GM Q12H per EXTENDED INFUSION IV SCH (14:59)
[2022-09-04 19:23] LABS: Calcium 9.8 mg/dL (8.6-10.3); Creatinine, Serum 4.06 mg/dL (0.67-1.17); Magnesium 1.8 mg/dL (1.9-2.7); Potassium 4.6 mmol/L (3.5-5.0); eGFR CKD-EPI 17.4 (>60)
[2022-09-04] MEDS ORDERED: Magnesium Sulfate IV 1GM/100ML 1 GM/100 ML BAG IV ONE (22:28)
[2022-09-05] MEDS: ZOSYN 3.375 GM Q12H per EXTENDED INFUSION IV SCH ×2 (02:19→14:11)
[2022-09-05 06:11] LABS: ABS Basophils 0.1 10^3/uL (0.0-0.1); ABS Eosinophils 0.2 10^3/uL (0.0-0.5); ABS Monocytes 0.8 10^3/uL (0.0-1.1); ABS Neutrophils 4.3 10^3/uL (1.5-7.6); ABS Nucleated RBC 0.01 10^3/ul; Eosinophil % 2.4 %; Hematocrit 30.3 % (38-53); Hemoglobin 10.5 g/dL (13.2-16.3); Lymphocyte % 16.3 %; Mean Corpuscular Hgb Conc 34.7 g/dL (31-36); Mean Corpuscular Volume 89.2 fL (80-97); Nucleated Red Blood Cells % 0.1 /100 WBC (0.0-0.4); Platelet Count 159 10^3/uL (150-450); Red Cell Distribution Width 14.7 % (12-17); White Blood Count 6.3 10^3/uL (3.6-10.2)
[2022-09-05 06:51] LABS: ALT 18 U/L (7-52); Albumin 3.3 g/dL (3.2-5.2); Albumin/Globulin Ratio 1.2 (1-3); Alkaline Phosphatase 85 U/L (35-149); Blood Urea Nitrogen 33 mg/dL (6-24); CO2 Carbon Dioxide 30 mmol/L (22-32); Calcium 9.4 mg/dL (8.6-10.3); Chloride 99 mmol/L (101-111); Creatinine, Serum 5.11 mg/dL (0.67-1.17); Globulin 2.7 g/dL (2-4); Glucose 105 mg/dL (70-100); Magnesium 2.3 mg/dL (1.9-2.7); Sodium 139 mmol/L (135-145); eGFR CKD-EPI 13.2 (>60)
[2022-09-05 06:53] LABS: Anion Gap 10 mmol/L (2-16)
[2022-09-05] MEDS: Heparin 1,000 UNIT/ML 10 ml (10,000 UNITS) CATHLAB/DIALYSIS DIALYSIS SCH ×4 (08:10→11:35)
[2022-09-05 15:13] LABS: Potassium Redraw 4.1 mmol/L (3.5-5.0)
[2022-09-05 15:30] LABS: Hepatitis B Surface Antigen Nonreactive (Nonreactive)
[2022-09-05 15:35] LABS: Hepatitis B Core IgM Nonreactive (Nonreactive)
[2022-09-05 15:47] LABS: Hepatitis B Surface Ab Not Immune (Immune)
[2022-09-06] MEDS: ZOSYN 3.375 GM Q12H per EXTENDED INFUSION IV SCH (02:07)
[2022-09-06 04:11] LABS: Hematocrit 30.9 % (38-53); Hemoglobin 10.7 g/dL (13.2-16.3); Mean Corpuscular Hemoglobin 31.1 pg (27-33); Mean Corpuscular Hgb Conc 34.7 g/dL (31-36); Mean Corpuscular Volume 89.7 fL (80-97); Mean Platelet Volume 9.7 fL (7.5-11.2); Platelet Count 179 10^3/uL (150-450); Red Blood Count 3.44 10^6/uL (4.06-5.63); White Blood Count 5.5 10^3/uL (3.6-10.2)
[2022-09-06 04:33] LABS: Albumin 3.4 g/dL (3.2-5.2); Albumin/Globulin Ratio 1.3 (1-3); Calcium 9.3 mg/dL (8.6-10.3); Creatinine, Serum 3.71 mg/dL (0.67-1.17); Globulin 2.7 g/dL (2-4); Magnesium 1.9 mg/dL (1.9-2.7); Total Bilirubin 0.5 mg/dL (0.2-1.0); Total Protein 6.1 g/dL (6.4-8.9); eGFR CKD-EPI 19.4 (>60)
[2022-09-06 04:40] LABS: Potassium 4.5 mmol/L (3.5-5.0)
[2022-09-06] MEDS ORDERED: Nicotine PATCH 14 MG/24 HR PATCH TRANSDERM SCH (09:00)
[2022-09-06] MEDS: Heparin 1,000 UNIT/ML 10 ml (10,000 UNITS) CATHLAB/DIALYSIS DIALYSIS SCH ×4 (09:50→12:58)
[2022-09-06 14:55] VITALS: BP 166/90
== END 2022-09-06 15:00 | DRG 52 ==
LOC: ED 21:24 → EDHOLD 21:24 → OBSVTOIN 09-04 00:50 → EDHOLD 09-04 08:14 → ICU 09-04 08:31
PROVIDERS: ADMIT Internal Medicine; ATTEND Internal Medicine

== ENCOUNTER 2023-07-28 13:53 | Inpatient (IN) ==
[2023-07-28 18:11] LABS: ABS Basophils 0.1 10^3/uL (0.0-0.1); ABS Lymphocytes 0.8 10^3/uL (1.0-4.8); ABS Monocytes 0.9 10^3/uL (0.0-1.1); Eosinophil % 0.2 %; Hematocrit 35.8 % (38-53); Hemoglobin 12.1 g/dL (13.2-16.3); Lymphocyte % 7.5 %; Mean Corpuscular Hemoglobin 29.6 pg (27-33); Mean Corpuscular Hgb Conc 33.8 g/dL (31-36); Mean Corpuscular Volume 87.5 fL (80-97); Mean Platelet Volume 10.9 fL (7.5-11.2); Platelet Count 115 10^3/uL (150-450); Red Blood Count 4.09 10^6/uL (4.06-5.63); Red Cell Distribution Width 14.5 % (12-17); White Blood Count 10.8 10^3/uL (3.6-10.2)
[2023-07-28 18:18] LABS: INR 1.65 (0.83-1.13)
[2023-07-28 18:36] LABS: Albumin 3.8 g/dL (3.2-5.2); Albumin/Globulin Ratio 1.5 (1-3); C Reactive Protein 161.12 mg/L (<8.01); Calcium 8.7 mg/dL (8.6-10.3); Creatinine, Serum 5.55 mg/dL (0.67-1.17); Globulin 2.5 g/dL (2-4); Potassium 3.6 mmol/L (3.5-5.0); Total Bilirubin 0.6 mg/dL (0.2-1.0); Total Protein 6.3 g/dL (6.4-8.9); eGFR CKD-EPI 11.9 (>60)
[2023-07-28] MEDS: Vancomycin 1,000 MG in NS 0.9% 250 ml 250 ML IVPB ONE ×2 (22:31→23:04)
[2023-07-28] MEDS: Piperacillin/Tazobac 3.375 BAG 3.375 GM/100 ML BAG IV ONE (22:32)
[2023-07-28] MEDS ORDERED: Zosyn per Pharmacy NOTE FOLLOW UP SCH (23:00)
[2023-07-28] MEDS ORDERED: Vancomycin per Pharmacy 1 EA NOTE FOLLOW UP SCH (23:00)
[2023-07-29] MEDS: Famotidine IV 10 MG/ML 2 ml VIAL (20 mg) IV SLOW PU ONE (02:53)
[2023-07-29] MEDS: Linezolid 600 MG IVPREMIX(*) 600 MG/300 ML BAG IVPB SCH (02:53)
[2023-07-29 06:04] LABS: Activated Partial Thrombo Time 36.9 seconds (26.0-38.0); INR 1.65 (0.83-1.13)
[2023-07-29 06:11] LABS: Mean Corpuscular Hemoglobin 30.1 pg (27-33); Mean Corpuscular Hgb Conc 34.3 g/dL (31-36); Mean Corpuscular Volume 87.8 fL (80-97); Mean Platelet Volume 10.2 fL (7.5-11.2); Platelet Count 87 10^3/uL (150-450); Red Blood Count 3.64 10^6/uL (4.06-5.63); Red Cell Distribution Width 14.9 % (12-17); White Blood Count 10.3 10^3/uL (3.6-10.2)
[2023-07-29 06:26] LABS: Calcium 6.6 mg/dL (8.6-10.3); Creatinine, Serum 4.73 mg/dL (0.67-1.17); Magnesium 1.1 mg/dL (1.9-2.7); Phosphorus 3.4 mg/dL (2.5-5.0); Potassium 3.1 mmol/L (3.5-5.0); eGFR CKD-EPI 14.4 (>60)
[2023-07-29] MEDS ORDERED: NS 0.9% 1000 ml BAG 200 ML IV PRN (07:23)
[2023-07-29] MEDS ORDERED: NS 0.9% 1000 ml BAG 100 ML IV PRN (07:23)
[2023-07-29] MEDS ORDERED: Magnesium Sulf 4 GM/100 ML IV 4,000 MG/100 ML BAG IVPB ONE (07:39)
[2023-07-29] MEDS: Heparin 1,000 UNIT/ML 10 ml (10,000 UNITS) CATHLAB/DIALYSIS DIALYSIS PRN (08:26)
[2023-07-29] MEDS: Nicotine PATCH 21 MG/24 HR PATCH TRANSDERM SCH (13:37)
[2023-07-29] MEDS: Magnesium Sulf 4 GM/100 ML IV 4,000 MG/100 ML BAG IVPB ONE (13:40)
[2023-07-29 13:58] LABS: Hepatitis B Surface Antigen Nonreactive (Nonreactive)
[2023-07-29] MEDS ORDERED: Vancomycin per Pharmacy 1 EA NOTE FOLLOW UP SCH (14:00)
[2023-07-29 14:15] LABS: Hepatitis B Surface Ab Not Immune (Immune)
[2023-07-29] MEDS ORDERED: ZOSYN 3.375 GM Q12H per EXTENDED INFUSION IV SCH (16:30)
[2023-07-29] MEDS: Famotidine IV 10 MG/ML 2 ml VIAL (20 mg) IV SLOW PU SCH (16:46)
[2023-07-29] MEDS: ZOSYN 3.375 GM Q12H per EXTENDED INFUSION IV SCH (17:11)
[2023-07-29 17:18] LABS: INR 1.47 (0.83-1.13)
[2023-07-29 17:36] LABS: Calcium 9.2 mg/dL (8.6-10.3); Creatinine, Serum 3.54 mg/dL (0.67-1.17); Potassium 3.7 mmol/L (3.5-5.0); eGFR CKD-EPI 20.4 (>60)
[2023-07-29] MEDS: Vancomycin 1000 MG in NS 0.9% 250 ML IVPB ONE (17:55)
[2023-07-29 18:13] LABS: Magnesium 2.1 mg/dL (1.9-2.7)
[2023-07-29 20:51] LABS: PCO2 Arterial 45 mmHg (35-45); PO2 Arterial 108 mmHg (80-100)
[2023-07-29] MEDS: Heparin 5000 UNITS/ML 1 mL VIAL SUBCUT SCH (22:25)
[2023-07-30 10:50] LABS: Hematocrit 39.4 % (38-53); Hemoglobin 13.3 g/dL (13.2-16.3); Mean Corpuscular Hemoglobin 29.7 pg (27-33); Mean Corpuscular Hgb Conc 33.6 g/dL (31-36); Mean Corpuscular Volume 88.5 fL (80-97); Mean Platelet Volume 10.7 fL (7.5-11.2); Platelet Count 114 10^3/uL (150-450); Red Blood Count 4.46 10^6/uL (4.06-5.63); Red Cell Distribution Width 14.9 % (12-17); White Blood Count 7.3 10^3/uL (3.6-10.2)
[2023-07-30 11:26] LABS: Calcium 8.5 mg/dL (8.6-10.3); Creatinine, Serum 4.55 mg/dL (0.67-1.17); Magnesium 2.7 mg/dL (1.9-2.7); Potassium 4.5 mmol/L (3.5-5.0); eGFR CKD-EPI 15.1 (>60)
[2023-07-30] MEDS: Lidocaine 1% MPF 5 ML VIAL INJ ONE (12:30)
[2023-07-30 15:22] LABS: TSH Ultra Thyroid Stim Horm 3.9 mcIU/mL (0.34-5.60)
[2023-07-30 15:45] LABS: Urine Benzodiazepine Screen None Detected (None Detect); Urine Cannabinoids Screen Presumptive Positive (None Detect); Urine Opiates Screen None Detected (None Detect)
[2023-07-31] MEDS: Acetaminophen IV 1 GM/100ML 1,000 MG/100 ML BAG IV PRN (01:55)
[2023-07-31 06:21] LABS: Hematocrit 32.4 % (38-53); Hemoglobin 11.2 g/dL (13.2-16.3); Mean Corpuscular Hemoglobin 30.2 pg (27-33); Mean Corpuscular Hgb Conc 34.6 g/dL (31-36); Mean Corpuscular Volume 87.1 fL (80-97); Mean Platelet Volume 10.9 fL (7.5-11.2); Platelet Count 104 10^3/uL (150-450); Red Blood Count 3.72 10^6/uL (4.06-5.63); Red Cell Distribution Width 14.8 % (12-17); White Blood Count 4.3 10^3/uL (3.6-10.2)
[2023-07-31 06:40] LABS: Calcium 8.1 mg/dL (8.6-10.3); Creatinine, Serum 5.4 mg/dL (0.67-1.17); Magnesium 2.3 mg/dL (1.9-2.7); Potassium 4.1 mmol/L (3.5-5.0); Vancomycin Random 20.6 mcg/mL; eGFR CKD-EPI 12.3 (>60)
[2023-07-31 07:52] LABS: ABS Eosinophils 0.1 10^3/uL (0.0-0.5); ABS Lymphocytes 0.6 10^3/uL (1.0-4.8); ABS Monocytes 0.5 10^3/uL (0.0-1.1); ABS Nucleated RBC 0.01 10^3/ul; Eosinophil % 2.4 %; Lymphocyte % 14.8 %; Nucleated Red Blood Cells % 0.1 %/100WBC (0.0-0.8); RBC Morphology Normal (Normal)
[2023-07-31] MEDS: Vancomycin Random Level NOTE FOLLOW UP ONE (11:39)
[2023-07-31] MEDS ORDERED: Midazolam 5 mg/5 ml VIAL 1 mg/ml 5 ml VIAL (5 mg) ONE (13:05)
[2023-07-31] MEDS ORDERED: fentaNYL 100 mcg/2 ml 50 MCG/ML VIAL ONE (13:05)
[2023-07-31] MEDS ORDERED: Naloxone 0.4 mg VIAL 0.4 mg/ml 1 ml VIAL ONE (13:05)
[2023-07-31] MEDS ORDERED: Flumazenil 0.5 mg/5 ml 0.1 MG/ML 5 ml VIAL ONE (13:05)
[2023-07-31] MEDS ORDERED: Flumazenil 0.5 mg/5 ml 0.1 MG/ML 5 ml VIAL IV PRN (14:05)
[2023-07-31] MEDS ORDERED: Naloxone 0.4 mg VIAL 0.4 mg/ml 1 ml VIAL IV PUSH PRN (14:05)
[2023-07-31] MEDS: fentaNYL 100 mcg/2 ml 50 MCG/ML VIAL IV SLOW PU ONE (14:26)
[2023-07-31] MEDS: Midazolam 10 mg/10 ml VIAL 1 mg/ml 10 ml VIAL (10 mg) IV SLOW PU ONE (14:27)
[2023-08-01] MEDS ORDERED: Lidocaine 1% VIAL 10 MG/ML 30 ML VIAL ONE (13:28)
[2023-08-01] MEDS ORDERED: Heparin 2 UNITS/ML IVPREMIX 1,000 UNIT/500 ML BAG IV ONE (13:28)
[2023-08-01] MEDS ORDERED: Midazolam 5 mg/5 ml VIAL 1 mg/ml 5 ml VIAL (5 mg) ONE (13:39)
[2023-08-01] MEDS ORDERED: fentaNYL 100 mcg/2 ml 50 MCG/ML VIAL ONE (13:39)
[2023-08-01] MEDS ORDERED: Iohexol 300 (CONTRAST) 10 ML SDV ONE (14:00)
[2023-08-01] MEDS: Albumin Human 25% 25 GM/100 ML BTL IV PRN (15:52)
[2023-08-02] MEDS: Glycerin ADULT 2.4 gm SUPP PR ONE (12:58)
[2023-08-02] MEDS: Vancomycin 500 MG in NS 0.9% 250 ML IVPB ONE (13:09)
[2023-08-02] MEDS: Alteplase (CATHFLO) 2 MG VIAL IV ONE (19:52)
[2023-08-04] MEDS ORDERED: Vancomycin Random Level NOTE FOLLOW UP ONE (06:00)
[2023-08-04 09:50] VITALS: BP 174/99
== END 2023-08-04 13:00 | disposition home or self-care (01) | DRG 711 ==
LOC: EDHOLD 13:53 → ED 13:53 → SUATTDRO 21:04 → EDHOLD 07-29 09:41 → MED 07-29 13:09
PROVIDERS: ADMIT Internal Medicine; ATTEND Internal Medicine

== ENCOUNTER 2024-03-20 14:19 | Inpatient (IN) ==
[2024-03-20 15:14] LABS: ABS Basophils 0.1 10^3/uL (0.0-0.1); ABS Eosinophils 0.1 10^3/uL (0.0-0.5); ABS Lymphocytes 0.7 10^3/uL (1.0-4.8); ABS Monocytes 0.4 10^3/uL (0.0-1.1); ABS Neutrophils 3.9 10^3/uL (1.5-7.6); Eosinophil % 1.6 %; Hematocrit 30.1 % (38-53); Hemoglobin 10.1 g/dL (13.2-16.3); Lymphocyte % 13.4 %; Mean Corpuscular Hemoglobin 30.5 pg (27-33); Mean Corpuscular Hgb Conc 33.4 g/dL (31-36); Mean Corpuscular Volume 91.2 fL (80-97); Mean Platelet Volume 9.4 fL (7.5-11.2); Nucleated Red Blood Cells % 0.1 %/100WBC (0.0-0.8); Platelet Count 158 10^3/uL (150-450); Red Blood Count 3.31 10^6/uL (4.06-5.63); Red Cell Distribution Width 15.3 % (12-17); White Blood Count 5.1 10^3/uL (3.6-10.2)
[2024-03-20 15:47] LABS: Albumin 3.5 g/dL (3.2-5.2); Albumin/Globulin Ratio 1.6 (1-3); Calcium 8.8 mg/dL (8.6-10.3); Creatinine, Serum 7.12 mg/dL (0.67-1.17); Globulin 2.2 g/dL (2-4); Total Bilirubin 0.4 mg/dL (0.2-1.0); Total Protein 5.7 g/dL (6.4-8.9); eGFR CKD-EPI 8.8 (>60)
[2024-03-20] MEDS ORDERED: Ondansetron 4 mg VIAL 2 MG/ML 2 ml VIAL IV PRN (16:18)
[2024-03-20 16:43] LABS: Urine Appearance Turbid; Urine Bilirubin Negative (Negative); Urine Blood 2+ (Negative); Urine Color Light-Yellow; Urine Glucose 2+ (>=150 mg/dL) (Negative); Urine Ketones Negative (Negative); Urine Nitrite Negative (Negative); Urine Protein 3+ (>=300 mg/dL) (Negative); Urine Urobilinogen Negative (Negative)
[2024-03-20 17:08] LABS: Urine Bacteria Absent /HPF (Absent); Urine Red Blood Cell 3+(>10/hpf) /HPF (0-Trace); Urine Squamous Epithelial Cell Present /HPF (Absent); Urine White Blood Cell 3+(>20/hpf) /HPF (0-Trace)
[2024-03-20] MEDS ORDERED: NS 0.9% 1000 ml BAG 200 ML IV PRN (19:35)
[2024-03-20] MEDS ORDERED: Albumin Human 25% 25 GM/100 ML BTL IV PRN (19:35)
[2024-03-20] MEDS ORDERED: NS 0.9% 1000 ml BAG 100 ML IV PRN (19:35)
[2024-03-20 20:45] LABS: Hepatitis B Surface Ab Not Immune (Immune)
[2024-03-20] MEDS: Heparin 1,000 UNIT/ML 10 ml (10,000 UNITS) CATHLAB/DIALYSIS DIALYSIS PRN (21:00)
[2024-03-21 09:25] VITALS: BP 121/74
[2024-03-21 09:57] LABS: Calcium 8.5 mg/dL (8.6-10.3); Creatinine, Serum 3.66 mg/dL (0.67-1.17); Potassium 4.3 mmol/L (3.5-5.0); eGFR CKD-EPI 19.6 (>60)
== END 2024-03-21 11:25 | disposition home or self-care (01) | DRG 470 ==
LOC: ED 14:19 → EDHOLD 16:18 → MED 17:58
PROVIDERS: ADMIT Student in an Organized Health Care Education/Training Program; ATTEND Internal Medicine

== ENCOUNTER 2024-04-18 13:50 | Inpatient (IN) ==
[2024-04-18] MEDS: NS 0.9% 1000 ml BAG 1,000 ML IV ONE (15:00)
[2024-04-18 15:22] LABS: ABS Lymphocytes 0.3 10^3/uL (1.0-4.8); ABS Monocytes 0.5 10^3/uL (0.0-1.1); ABS Neutrophils 8.1 10^3/uL (1.5-7.6); ABS Nucleated RBC 0.01 10^3/ul; Hematocrit 38.2 % (38-53); Hemoglobin 12.6 g/dL (13.2-16.3); Lymphocyte % 3.5 %; Mean Corpuscular Hemoglobin 30.6 pg (27-33); Mean Platelet Volume 10.7 fL (7.5-11.2); Nucleated Red Blood Cells % 0.1 %/100WBC (0.0-0.8); Platelet Count 183 10^3/uL (150-450); Red Cell Distribution Width 16.1 % (12-17); White Blood Count 8.9 10^3/uL (3.6-10.2)
[2024-04-18 16:06] LABS: ALT 14 U/L (7-52); AST 24 U/L (13-39); Acetaminophen < 15 mcg/mL; Albumin/Globulin Ratio 1.4 (1-3); Alcohol, S < 13 mg/dL (<13); Alkaline Phosphatase 121 U/L (35-149); Anion Gap 26 mmol/L (2-16); Blood Urea Nitrogen 73 mg/dL (6-24); CO2 Carbon Dioxide 16 mmol/L (22-32); Calcium 9.9 mg/dL (8.6-10.3); Chloride 106 mmol/L (101-111); Creatinine, Serum 7.99 mg/dL (0.67-1.17); Globulin 2.8 g/dL (2-4); Glucose 70 mg/dL (70-100); Magnesium 2.2 mg/dL (1.9-2.7); Sodium 148 mmol/L (135-145); Total Bilirubin 0.6 mg/dL (0.2-1.0); Total Protein 6.8 g/dL (6.4-8.9); eGFR CKD-EPI 7.7 (>60)
[2024-04-18 16:10] LABS: Urine Benzodiazepine Screen None Detected (None Detect); Urine Cannabinoids Screen Presumptive Positive (None Detect); Urine Opiates Screen None Detected (None Detect)
[2024-04-18] MEDS: Sodium Polystyrene ORAL.SUSP 15 GM/60 ML BTL PO ONE (17:30)
[2024-04-18] MEDS: ZOSYN 3.375 GM x ONE DOSE over 30 miuntes IV (17:35)
[2024-04-18] MEDS ORDERED: NS 0.9% 1000 ml BAG 100 ML IV PRN (17:38)
[2024-04-18] MEDS ORDERED: NS 0.9% 1000 ml BAG 200 ML IV PRN (17:38)
[2024-04-18 17:48] LABS: Phosphorus 11.2 mg/dL (2.5-5.0)
[2024-04-18] MEDS ORDERED: Zosyn per Pharmacy NOTE FOLLOW UP SCH (18:00)
[2024-04-18] MEDS ORDERED: Vancomycin per Pharmacy 1 EA NOTE FOLLOW UP SCH (18:00)
[2024-04-18] MEDS: Vancomycin 1,000 MG - ED ONCE IVPB ONE (18:14)
[2024-04-18] MEDS: NS 0.45% 1000 ml BAG 1,000 ML IV SCH (18:14)
[2024-04-18 19:20] LABS: Hepatitis B Surface Antigen Nonreactive (Nonreactive)
[2024-04-18 19:37] LABS: High Sensitivity Troponin 1 Hr 18 pg/mL (<20)
[2024-04-18 19:37] LABS: Hepatitis B Surface Ab Not Immune (Immune)
[2024-04-18] MEDS: Heparin 1,000 UNIT/ML 10 ml (10,000 UNITS) CATHLAB/DIALYSIS DIALYSIS PRN (22:00)
[2024-04-18] MEDS: Sodium Polystyrene RECTAL 30 GM/120 ML RECTAL.SUS PR SCH (22:39)
[2024-04-18] MEDS: ZOSYN 3.375 GM Q12H per EXTENDED INFUSION IV SCH (22:45)
[2024-04-18] MEDS: Heparin 5000 UNITS/ML 1 mL VIAL SUBCUT SCH (22:47)
[2024-04-18 23:22] LABS: PCO2 Arterial 40 mmHg (35-45); PO2 Arterial 73 mmHg (80-100)
[2024-04-19] MEDS: Albumin Human 25% 25 GM/100 ML BTL IV PRN (00:18)
[2024-04-19] MEDS: ZOSYN 3.375 GM Q12H per EXTENDED INFUSION IV SCH (02:43)
[2024-04-19 02:55] LABS: Venous Bicarbonate HCO3 24.4 mmol/L (24-28)
[2024-04-19 04:27] LABS: ABS Lymphocytes 0.7 10^3/uL (1.0-4.8); ABS Monocytes 0.5 10^3/uL (0.0-1.1); ABS Neutrophils 5.4 10^3/uL (1.5-7.6); Eosinophil % 0.1 %; Hematocrit 32.3 % (38-53); Hemoglobin 10.9 g/dL (13.2-16.3); Mean Corpuscular Hemoglobin 30.3 pg (27-33); Mean Corpuscular Hgb Conc 33.9 g/dL (31-36); Mean Corpuscular Volume 89.4 fL (80-97); Platelet Count 153 10^3/uL (150-450); Red Blood Count 3.61 10^6/uL (4.06-5.63); White Blood Count 6.7 10^3/uL (3.6-10.2)
[2024-04-19 05:13] LABS: Albumin/Globulin Ratio 1.8 (1-3); Calcium 9.2 mg/dL (8.6-10.3); Creatinine, Serum 3.23 mg/dL (0.67-1.17); Globulin 2.2 g/dL (2-4); Potassium 3.1 mmol/L (3.5-5.0); Total Bilirubin 0.8 mg/dL (0.2-1.0); Total Protein 6.2 g/dL (6.4-8.9); Vancomycin Random 12.1 mcg/mL; eGFR CKD-EPI 22.7 (>60)
[2024-04-19 06:15] LABS: Magnesium 1.8 mg/dL (1.9-2.7); Phosphorus 7.1 mg/dL (2.5-5.0)
[2024-04-19] MEDS: Acetaminophen IV 1 GM/100ML 1,000 MG/100 ML BAG IV PRN (10:28)
[2024-04-20 06:01] LABS: ABS Lymphocytes 0.6 10^3/uL (1.0-4.8); ABS Monocytes 0.4 10^3/uL (0.0-1.1); ABS Neutrophils 5.2 10^3/uL (1.5-7.6); Hemoglobin 12.2 g/dL (13.2-16.3); Mean Corpuscular Hemoglobin 30.5 pg (27-33); Mean Corpuscular Hgb Conc 33.9 g/dL (31-36); Mean Corpuscular Volume 90.1 fL (80-97); Mean Platelet Volume 9.5 fL (7.5-11.2); Platelet Count 144 10^3/uL (150-450); Red Blood Count 3.99 10^6/uL (4.06-5.63); White Blood Count 6.3 10^3/uL (3.6-10.2)
[2024-04-20 06:19] LABS: Albumin 4.1 g/dL (3.5-5.7); Albumin/Globulin Ratio 1.8 (1-3); Creatinine, Serum 5.94 mg/dL (0.67-1.17); Globulin 2.3 g/dL (2-4); Potassium 2.9 mmol/L (3.5-5.0); Total Bilirubin 0.6 mg/dL (0.2-1.0); Total Protein 6.4 g/dL (6.4-8.9); eGFR CKD-EPI 10.9 (>60)
[2024-04-20] MEDS: Iodixanol 320 (CONTRAST) 100 ML SDV IV ONE (14:37)
[2024-04-20] MEDS: KCL 20 MEQ/100 ML IVPREMIX 20 MEQ/100 ML BAG IV SCH (15:06)
[2024-04-20] MEDS: Albuterol/Ipratropium NEB.SOL (2.5/0.5 MG) 3 ML NEB.SOLN INH SCH ×2 (16:14→23:13)
[2024-04-20] MEDS ORDERED: Acetylcysteine INH SOL (RT) 200 MG/ML 4 ML VIAL INH SCH (17:00)
[2024-04-20] MEDS: cefTRIAXone 1 gm/50 mL D5W 1 GM/50 ML BAG IV SCH (19:03)
[2024-04-20] MEDS: Vancomycin Random Level NOTE FOLLOW UP ONE (19:36)
[2024-04-20] MEDS: Cefepime 1 GM in Dextrose 1 GM/50 ML BAG IV SCH (21:49)
[2024-04-20] MEDS: Acetylcysteine INH SOL (RT) 200 MG/ML 4 ML VIAL INH SCH (23:46)
[2024-04-21 01:03] LABS: PCO2 Arterial 42 mmHg (35-45)
[2024-04-21 01:07] LABS: PO2 Arterial 58 mmHg (80-100)
[2024-04-21] MEDS: Albuterol/Ipratropium NEB.SOL (2.5/0.5 MG) 3 ML NEB.SOLN ONE (07:35)
[2024-04-21] MEDS: Acetylcysteine INH SOL (RT) 200 MG/ML 4 ML VIAL INH SCH (07:35)
[2024-04-21 07:36] LABS: ABS Lymphocytes 0.9 10^3/uL (1.0-4.8); ABS Monocytes 0.6 10^3/uL (0.0-1.1); ABS Neutrophils 5.8 10^3/uL (1.5-7.6); Eosinophil % 0.1 %; Hematocrit 38.7 % (38-53); Hemoglobin 13.1 g/dL (13.2-16.3); Lymphocyte % 12.5 %; Mean Corpuscular Hemoglobin 30.5 pg (27-33); Mean Corpuscular Hgb Conc 33.7 g/dL (31-36); Mean Corpuscular Volume 90.5 fL (80-97); Mean Platelet Volume 9.7 fL (7.5-11.2); Platelet Count 150 10^3/uL (150-450); Red Blood Count 4.27 10^6/uL (4.06-5.63); Red Cell Distribution Width 15.4 % (12-17); White Blood Count 7.4 10^3/uL (3.6-10.2)
[2024-04-21 07:52] LABS: Albumin 4.1 g/dL (3.5-5.7); Albumin/Globulin Ratio 1.6 (1-3); Calcium 9.5 mg/dL (8.6-10.3); Creatinine, Serum 3.95 mg/dL (0.67-1.17); Globulin 2.5 g/dL (2-4); Magnesium 1.7 mg/dL (1.9-2.7); Potassium 3.8 mmol/L (3.5-5.0); Total Bilirubin 0.7 mg/dL (0.2-1.0); Total Protein 6.6 g/dL (6.4-8.9); eGFR CKD-EPI 17.9 (>60)
[2024-04-21] MEDS: Albuterol/Ipratropium NEB.SOL (2.5/0.5 MG) 3 ML NEB.SOLN INH SCH (08:04)
[2024-04-21] MEDS: Sulfamethox/Trimethoprim DS TAB 800/160 mg PO SCH (12:47)
[2024-04-22 08:52] LABS: ABS Basophils 0.1 10^3/uL (0.0-0.1); ABS Eosinophils 0.1 10^3/uL (0.0-0.5); ABS Lymphocytes 1.2 10^3/uL (1.0-4.8); ABS Monocytes 0.8 10^3/uL (0.0-1.1); ABS Neutrophils 5.8 10^3/uL (1.5-7.6); Eosinophil % 1.3 %; Hematocrit 35.7 % (38-53); Hemoglobin 12.1 g/dL (13.2-16.3); Lymphocyte % 15.5 %; Mean Corpuscular Hemoglobin 30.5 pg (27-33); Mean Corpuscular Hgb Conc 33.9 g/dL (31-36); Mean Corpuscular Volume 89.9 fL (80-97); Mean Platelet Volume 9.4 fL (7.5-11.2); Platelet Count 133 10^3/uL (150-450); Red Blood Count 3.97 10^6/uL (4.06-5.63); Red Cell Distribution Width 14.9 % (12-17)
[2024-04-22 09:13] LABS: Calcium 8.8 mg/dL (8.6-10.3); Creatinine, Serum 5.75 mg/dL (0.67-1.17); Potassium 4.7 mmol/L (3.5-5.0); eGFR CKD-EPI 11.4 (>60)
[2024-04-22] MEDS: Metoprolol Tartrate 5 mg VIAL 5 ml VIAL (1 mg/ml) IV ONE ×2 (09:33→14:45)
[2024-04-22] MEDS: Metoprolol Tartrate 5 mg VIAL 5 ml VIAL (1 mg/ml) ONE (09:55)
[2024-04-22] MEDS: Phenylephrine 40 mcg/mL 10mL (400mcg) SYRINGE ONE (15:31)
[2024-04-23 08:55] LABS: ABS Basophils 0.1 10^3/uL (0.0-0.1); ABS Eosinophils 0.3 10^3/uL (0.0-0.5); ABS Lymphocytes 1.4 10^3/uL (1.0-4.8); ABS Monocytes 0.8 10^3/uL (0.0-1.1); ABS Neutrophils 6.9 10^3/uL (1.5-7.6); ABS Nucleated RBC 0.02 10^3/ul; Eosinophil % 2.7 %; Hematocrit 42.5 % (38-53); Hemoglobin 14.2 g/dL (13.2-16.3); Lymphocyte % 14.5 %; Mean Corpuscular Hemoglobin 30.3 pg (27-33); Mean Corpuscular Hgb Conc 33.4 g/dL (31-36); Mean Corpuscular Volume 90.5 fL (80-97); Mean Platelet Volume 9.3 fL (7.5-11.2); Nucleated Red Blood Cells % 0.2 %/100WBC (0.0-0.8); Platelet Count 144 10^3/uL (150-450); Red Blood Count 4.69 10^6/uL (4.06-5.63); Red Cell Distribution Width 15.3 % (12-17); White Blood Count 9.4 10^3/uL (3.6-10.2)
[2024-04-23 09:11] LABS: Creatinine, Serum 4.64 mg/dL (0.67-1.17); Potassium 5.8 mmol/L (3.5-5.0); eGFR CKD-EPI 14.7 (>60)
[2024-04-23] MEDS ORDERED: Etomidate 40 mg/20 ml (2 MG/ML) 20 ml VIAL (40 mg) ONE (10:19)
[2024-04-23] MEDS ORDERED: Midazolam 10 mg/10 ml VIAL 1 mg/ml 10 ml VIAL (10 mg) ONE ×2 (10:19)
[2024-04-23] MEDS: Midazolam PREMIXBAG 1 MG/ML NS 100 ML IV SCH (10:20)
[2024-04-23] MEDS: Acetylcysteine INH SOL (RT) 200 MG/ML 4 ML VIAL INH ONE (10:30)
[2024-04-23] MEDS: Etomidate 40 mg/20 ml (2 MG/ML) 20 ml VIAL (40 mg) ONE (11:27)
[2024-04-23] MEDS: Phenylephrine 40 mcg/mL 10mL (400mcg) SYRINGE ONE ×2 (11:28→13:58)
[2024-04-23] MEDS: Midazolam 5 mg/5 ml VIAL 1 mg/ml 5 ml VIAL (5 mg) ONE ×2 (11:28)
[2024-04-23] MEDS: Lidocaine 1% VIAL 10 MG/ML 30 ML VIAL ONE (11:28)
[2024-04-23] MEDS: Midazolam PREMIXBAG 1 MG/ML NS 100 ML IV ONE (11:31)
[2024-04-23] MEDS: Phenylephrine 40 mcg/mL 10mL (400mcg) SYRINGE IV PUSH ONE ×2 (11:31→13:39)
[2024-04-23] MEDS: Dextrose 50% Syringe 50 ml 25 GM/50 ML SYRINGE IV PUSH PRN (11:40)
[2024-04-23] MEDS: Lidocaine 1% MPF 5 ML VIAL ONE (11:47)
[2024-04-23] MEDS: Dextrose 50% Syringe 50 ml 25 GM/50 ML SYRINGE ONE (11:55)
[2024-04-23] MEDS: Acetylcysteine INHALATION SOL 200 MG/ML NEB.SOLN 10 ML ONE (12:16)
[2024-04-23] MEDS: Norepinephrine 4 MG/250mL D5W 4,000 MCG/250 ML BAG IV SCH (13:50)
[2024-04-23] MEDS: Norepinephrine 4 MG/250mL D5W 4,000 MCG/250 ML BAG IV ONE (14:02)
[2024-04-23 15:42] LABS: Resp Rate 12
[2024-04-23 15:43] LABS: PCO2 Arterial 46 mmHg (35-45); PO2 Arterial 65 mmHg (80-100)
[2024-04-23] MEDS: Chlorhexidine MOUTHWASH 0.12% 15 ML UDC SWISH SPIT SCH (15:50)
[2024-04-23 16:54] LABS: Calcium 10.3 mg/dL (8.6-10.3); Creatinine, Serum 5.17 mg/dL (0.67-1.17); eGFR CKD-EPI 12.9 (>60)
[2024-04-24 06:21] LABS: ABS Basophils 0.1 10^3/uL (0.0-0.1); ABS Eosinophils 0.4 10^3/uL (0.0-0.5); ABS Lymphocytes 1.5 10^3/uL (1.0-4.8); ABS Monocytes 0.9 10^3/uL (0.0-1.1); ABS Neutrophils 7.9 10^3/uL (1.5-7.6); ABS Nucleated RBC 0.01 10^3/ul; Eosinophil % 3.8 %; Hematocrit 40.3 % (38-53); Hemoglobin 13.8 g/dL (13.2-16.3); Lymphocyte % 14.2 %; Mean Corpuscular Hemoglobin 30.7 pg (27-33); Mean Corpuscular Hgb Conc 34.2 g/dL (31-36); Mean Corpuscular Volume 89.8 fL (80-97); Mean Platelet Volume 9.7 fL (7.5-11.2); Nucleated Red Blood Cells % 0.1 %/100WBC (0.0-0.8); Platelet Count 146 10^3/uL (150-450); Red Blood Count 4.49 10^6/uL (4.06-5.63); Red Cell Distribution Width 15.1 % (12-17); White Blood Count 10.8 10^3/uL (3.6-10.2)
[2024-04-24 06:48] LABS: Calcium 9.8 mg/dL (8.6-10.3); Creatinine, Serum 5.96 mg/dL (0.67-1.17); Potassium 4.8 mmol/L (3.5-5.0); eGFR CKD-EPI 10.9 (>60)
[2024-04-24] MEDS: Pantoprazole VIAL 40 MG VIAL IV SCH (07:46)
[2024-04-24] MEDS: Albuterol/Ipratropium NEB.SOL (2.5/0.5 MG) 3 ML NEB.SOLN INH SCH (19:16)
[2024-04-25 05:28] LABS: ABS Basophils 0.1 10^3/uL (0.0-0.1); ABS Eosinophils 0.3 10^3/uL (0.0-0.5); ABS Lymphocytes 1.6 10^3/uL (1.0-4.8); ABS Monocytes 0.8 10^3/uL (0.0-1.1); ABS Neutrophils 5.4 10^3/uL (1.5-7.6); Eosinophil % 3.2 %; Hematocrit 32.9 % (38-53); Lymphocyte % 19.5 %; Mean Corpuscular Hgb Conc 33.4 g/dL (31-36); Mean Corpuscular Volume 89.6 fL (80-97); Nucleated Red Blood Cells % 0.1 %/100WBC (0.0-0.8); Platelet Count 131 10^3/uL (150-450); Red Blood Count 3.67 10^6/uL (4.06-5.63); Red Cell Distribution Width 15.3 % (12-17); White Blood Count 8.1 10^3/uL (3.6-10.2)
[2024-04-25 06:23] LABS: Calcium 10.1 mg/dL (8.6-10.3); Creatinine, Serum 4.38 mg/dL (0.67-1.17); Potassium 4.3 mmol/L (3.5-5.0); eGFR CKD-EPI 15.8 (>60)
[2024-04-26 08:59] LABS: Hematocrit 29.4 % (38-53); Mean Corpuscular Hemoglobin 30.8 pg (27-33); Mean Corpuscular Hgb Conc 33.8 g/dL (31-36); Mean Corpuscular Volume 90.9 fL (80-97); Mean Platelet Volume 9.9 fL (7.5-11.2); Platelet Count 113 10^3/uL (150-450); Red Blood Count 3.24 10^6/uL (4.06-5.63); Red Cell Distribution Width 14.9 % (12-17)
[2024-04-26 09:15] LABS: Creatinine, Serum 6.07 mg/dL (0.67-1.17); Potassium 3.7 mmol/L (3.5-5.0); eGFR CKD-EPI 10.7 (>60)
[2024-04-26 09:18] VITALS: BP 105/64
== END 2024-04-26 12:49 | disposition home health service (06) | DRG 52 ==
LOC: ED 13:50 → SUATTDRO 17:09 → EDHOLD 17:09 → ICU 19:48 → MEDTELE 04-19 17:30 → ICU 04-21 02:02 → MED 04-24 20:49
PROVIDERS: ADMIT Student in an Organized Health Care Education/Training Program; ATTEND Internal Medicine

== ENCOUNTER 2024-05-19 01:11 | Inpatient (IN) ==
[2024-05-19] MEDS ORDERED: Lorazepam PYXIS KEY PRN ×2 (01:33→23:43)
[2024-05-19] MEDS: LORazepam 2 mg VIAL 1 ml IV PUSH ONE (01:44)
[2024-05-19 02:14] LABS: ABS Lymphocytes 0.8 10^3/uL (1.0-4.8); ABS Monocytes 0.5 10^3/uL (0.0-1.1); ABS Neutrophils 7.3 10^3/uL (1.5-7.6); Hematocrit 30.6 % (38-53); Hemoglobin 9.9 g/dL (13.2-16.3); Mean Corpuscular Hemoglobin 30.7 pg (27-33); Mean Corpuscular Hgb Conc 32.3 g/dL (31-36); Mean Corpuscular Volume 94.8 fL (80-97); Mean Platelet Volume 10.4 fL (7.5-11.2); Platelet Count 175 10^3/uL (150-450); Red Blood Count 3.23 10^6/uL (4.06-5.63); Red Cell Distribution Width 17.2 % (12-17); White Blood Count 8.6 10^3/uL (3.6-10.2)
[2024-05-19 02:23] LABS: INR 1.21 (0.85-1.14)
[2024-05-19 02:56] LABS: Albumin 3.7 g/dL (3.5-5.7); Albumin/Globulin Ratio 1.8 (1-3); Creatinine, Serum 7.38 mg/dL (0.67-1.17); Globulin 2.1 g/dL (2-4); Magnesium 2.4 mg/dL (1.9-2.7); Potassium 5.8 mmol/L (3.5-5.0); Total Bilirubin 0.5 mg/dL (0.2-1.0); Total Protein 5.8 g/dL (6.4-8.9); eGFR CKD-EPI 8.4 (>60)
[2024-05-19] MEDS: Dextrose 50% Syringe 50 ml 25 GM/50 ML SYRINGE IV PUSH PRN (03:30)
[2024-05-19 03:58] LABS: High Sensitivity Troponin 1 Hr 23 pg/mL (<20)
[2024-05-19] MEDS: D5W 1/2 NS 1000 ml BAG 1,000 ML IV SCH (03:59)
[2024-05-19] MEDS ORDERED: Cefepime 1 GM in Dextrose 1 GM/50 ML BAG IV SCH (04:00)
[2024-05-19] MEDS ORDERED: Vancomycin per Pharmacy 1 EA NOTE FOLLOW UP SCH ×2 (04:00→09:54)
[2024-05-19 04:07] LABS: Activated Partial Thrombo Time 33.5 seconds (26.0-38.0)
[2024-05-19] MEDS: Vancomycin 1,000 MG in NS 0.9% 250 ml 250 ML IVPB ONE (04:26)
[2024-05-19 06:32] LABS: Venous Bicarbonate HCO3 17.4 mmol/L (24-28)
[2024-05-19] MEDS: Heparin 5000 UNITS/ML 1 mL VIAL SUBCUT SCH (07:19)
[2024-05-19] MEDS ORDERED: NS 0.9% 1000 ml BAG 200 ML IV PRN (07:53)
[2024-05-19] MEDS ORDERED: Albumin Human 25% 25 GM/100 ML BTL IV PRN (07:53)
[2024-05-19] MEDS ORDERED: NS 0.9% 1000 ml BAG 100 ML IV PRN (07:53)
[2024-05-19] MEDS: Norepinephrine 32MCG/ML D5WBAG 8,000 MCG/250 ML BAG IV SCH (08:30)
[2024-05-19] MEDS: Heparin 1,000 UNIT/ML 10 ml (10,000 UNITS) CATHLAB/DIALYSIS DIALYSIS PRN (09:00)
[2024-05-19] MEDS ORDERED: Zosyn per Pharmacy NOTE FOLLOW UP SCH (10:00)
[2024-05-19] MEDS ORDERED: Sulfur Hexaflouride MICROSPHR 25 MG VIAL IV PRN (10:08)
[2024-05-19] MEDS: Norepinephrine 32MCG/ML D5WBAG 8,000 MCG/250 ML BAG IV ONE (10:39)
[2024-05-19 11:25] LABS: Urine Appearance Clear; Urine Bilirubin Negative (Negative); Urine Blood 2+ (Negative); Urine Color Yellow; Urine Glucose Negative (Negative); Urine Ketones 1+ (Negative); Urine Nitrite 1+ (Negative); Urine Protein 3+ (>=300 mg/dL) (Negative); Urine Specific Gravity 1.018 (1.002-1.030); Urine Urobilinogen Negative (Negative); Urine pH 6.5 (5.0-8.0)
[2024-05-19 11:48] LABS: C Reactive Protein 88.39 mg/L (<8.01)
[2024-05-19] MEDS: Haloperidol 5 mg/ml SDV IV/IM 5 MG/ML AMP IV SLOW PU PRN (12:04)
[2024-05-19 12:13] LABS: Urine Bacteria 3+ /HPF (Absent); Urine Red Blood Cell 1+(3-5/hpf) /HPF (0-Trace); Urine Squamous Epithelial Cell Present /HPF (Absent); Urine White Blood Cell 3+(>20/hpf) /HPF (0-Trace)
[2024-05-19] MEDS: ZOSYN 3.375 GM x ONE DOSE over 30 miuntes IV (13:07)
[2024-05-19] MEDS: Haloperidol 5 mg/ml SDV IV/IM 5 MG/ML AMP ONE (14:54)
[2024-05-19] MEDS: Vancomycin 500 MG in NS 0.9% 250 ML IVPB ONE (15:10)
[2024-05-19] MEDS: Bacitracin OINTMENT TUBE TOPICAL SCH (15:48)
[2024-05-19] MEDS: Famotidine IV 10 MG/ML 2 ml VIAL (20 mg) IV SLOW PU SCH (16:04)
[2024-05-19 16:27] LABS: Calcium 8.9 mg/dL (8.6-10.3); Creatinine, Serum 2.68 mg/dL (0.67-1.17); Magnesium 1.9 mg/dL (1.9-2.7); Phosphorus 4.8 mg/dL (2.5-5.0); Potassium 3.9 mmol/L (3.5-5.0); eGFR CKD-EPI 28.4 (>60)
[2024-05-19 16:36] LABS: Hepatitis B Surface Antigen Nonreactive (Nonreactive)
[2024-05-19 16:53] LABS: Hepatitis B Surface Ab Not Immune (Immune)
[2024-05-19] MEDS ORDERED: cefTRIAXone 1 gm/50 mL D5W 1 GM/50 ML BAG IV SCH (17:00)
[2024-05-19] MEDS ORDERED: ZOSYN 3.375 GM Q12H per EXTENDED INFUSION IV SCH (18:00)
[2024-05-19] MEDS: Piperacillin/Tazobactam 4.5 GM in NS 0.9% 100 ml BAG 100 ML IV SCH (19:16)
[2024-05-19] MEDS: LORazepam 2 mg VIAL 1 ml IV PUSH PRN (23:52)
[2024-05-20 05:04] LABS: ABS Basophils 0.1 10^3/uL (0.0-0.1); ABS Eosinophils 0.1 10^3/uL (0.0-0.5); ABS Monocytes 0.6 10^3/uL (0.0-1.1); ABS Neutrophils 4.2 10^3/uL (1.5-7.6); Eosinophil % 1.2 %; Hematocrit 28.2 % (38-53); Hemoglobin 9.7 g/dL (13.2-16.3); Lymphocyte % 16.8 %; Mean Corpuscular Hemoglobin 31.7 pg (27-33); Mean Corpuscular Hgb Conc 34.5 g/dL (31-36); Mean Corpuscular Volume 91.8 fL (80-97); Mean Platelet Volume 9.5 fL (7.5-11.2); Platelet Count 150 10^3/uL (150-450); Red Blood Count 3.08 10^6/uL (4.06-5.63); Red Cell Distribution Width 16.7 % (12-17); White Blood Count 5.9 10^3/uL (3.6-10.2)
[2024-05-20 05:24] LABS: Albumin 3.6 g/dL (3.5-5.7); Albumin/Globulin Ratio 1.7 (1-3); Calcium 8.9 mg/dL (8.6-10.3); Creatinine, Serum 3.76 mg/dL (0.67-1.17); Globulin 2.1 g/dL (2-4); Potassium 4.1 mmol/L (3.5-5.0); Total Bilirubin 0.7 mg/dL (0.2-1.0); Total Protein 5.7 g/dL (6.4-8.9); Vancomycin Random 20.3 mcg/mL; eGFR CKD-EPI 18.9 (>60)
[2024-05-20] MEDS: Vancomycin Random Level NOTE FOLLOW UP ONE (05:29)
[2024-05-20] MEDS ORDERED: Heparin 5000 UNITS/ML 1 mL VIAL IV SCH (10:00)
[2024-05-20] MEDS ORDERED: Heparin 5000 UNITS/ML 1 mL VIAL IV PRN (10:00)
[2024-05-20] MEDS ORDERED: Heparin DRIP 25,000 UNITS BAG 25,000 UNITS/250 ML BAG IV SCH (10:00)
[2024-05-20] MEDS: Heparin DRIP 25,000 UNITS BAG 25,000 UNITS/250 ML BAG IV SCH (12:40)
[2024-05-20] MEDS: Vancomycin 1000 MG in NS 0.9% 250 ML IVPB ONE (15:27)
[2024-05-20] MEDS: Piperacillin/Tazobactam 4.5 GM in NS 0.9% 100 ml BAG 100 ML IV SCH (17:32)
[2024-05-20] MEDS: Nicotine GUM 2MG FRUIT FLAVOR PO PRN (21:54)
[2024-05-21 07:45] LABS: Hematocrit 25.8 % (38-53); Hemoglobin 8.8 g/dL (13.2-16.3); Mean Corpuscular Hemoglobin 31.4 pg (27-33); Mean Corpuscular Hgb Conc 34.2 g/dL (31-36); Mean Corpuscular Volume 91.8 fL (80-97); Mean Platelet Volume 9.5 fL (7.5-11.2); Platelet Count 102 10^3/uL (150-450); Red Blood Count 2.81 10^6/uL (4.06-5.63); Red Cell Distribution Width 16.1 % (12-17); White Blood Count 4.1 10^3/uL (3.6-10.2)
[2024-05-21 08:43] LABS: Calcium 8.1 mg/dL (8.6-10.3); Creatinine, Serum 3.13 mg/dL (0.67-1.17); Potassium 3.7 mmol/L (3.5-5.0); Vancomycin Trough 24.6 mcg/mL; eGFR CKD-EPI 23.6 (>60)
[2024-05-21] MEDS ORDERED: fentaNYL 100 mcg/2 ml 50 MCG/ML VIAL ONE (14:49)
[2024-05-21] MEDS ORDERED: Naloxone 0.4 mg VIAL 0.4 mg/ml 1 ml VIAL ONE (14:49)
[2024-05-21] MEDS ORDERED: Flumazenil 0.5 mg/5 ml 0.1 MG/ML 5 ml VIAL ONE (14:49)
[2024-05-21] MEDS ORDERED: Midazolam 5 mg/5 ml VIAL 1 mg/ml 5 ml VIAL (5 mg) ONE (14:50)
[2024-05-21] MEDS ORDERED: Naloxone 0.4 mg VIAL 0.4 mg/ml 1 ml VIAL IV PUSH PRN (15:48)
[2024-05-21] MEDS ORDERED: Flumazenil 0.5 mg/5 ml 0.1 MG/ML 5 ml VIAL IV PRN (15:48)
[2024-05-21] MEDS: fentaNYL 100 mcg/2 ml 50 MCG/ML VIAL IV SLOW PU ONE (18:06)
[2024-05-21] MEDS: NS 0.9% 1000 ml BAG 1,000 ML IV ONE (18:06)
[2024-05-21] MEDS: Midazolam 10 mg/10 ml VIAL 1 mg/ml 10 ml VIAL (10 mg) IV SLOW PU ONE (18:07)
[2024-05-22 06:50] LABS: Creatinine, Serum 4.57 mg/dL (0.67-1.17); Vancomycin Random 23.5 mcg/mL
[2024-05-22 08:01] LABS: Calcium 7.9 mg/dL (8.6-10.3); Magnesium 1.8 mg/dL (1.9-2.7); Potassium 3.8 mmol/L (3.5-5.0)
[2024-05-22 08:12] LABS: Hematocrit 23.8 % (38-53); Hemoglobin 8.1 g/dL (13.2-16.3); Mean Corpuscular Hemoglobin 31.1 pg (27-33); Mean Corpuscular Hgb Conc 34.2 g/dL (31-36); Mean Corpuscular Volume 91.1 fL (80-97); Mean Platelet Volume 9.6 fL (7.5-11.2); Platelet Count 98 10^3/uL (150-450); Red Blood Count 2.61 10^6/uL (4.06-5.63); Red Cell Distribution Width 16.3 % (12-17); White Blood Count 4.8 10^3/uL (3.6-10.2)
[2024-05-22] MEDS: Vancomycin Random Level NOTE FOLLOW UP ONE (10:58)
[2024-05-22] MEDS: Famotidine IV 10 MG/ML 2 ml VIAL (20 mg) IV SLOW PU SCH (12:35)
[2024-05-22] MEDS: Vancomycin 500 MG in NS 0.9% 250 ML IVPB ONE (17:02)
[2024-05-23 07:00] LABS: ABS Basophils 0.1 10^3/uL (0.0-0.1); ABS Eosinophils 0.2 10^3/uL (0.0-0.5); ABS Lymphocytes 1.2 10^3/uL (1.0-4.8); ABS Monocytes 0.6 10^3/uL (0.0-1.1); ABS Neutrophils 1.8 10^3/uL (1.5-7.6); Eosinophil % 5.3 %; Hematocrit 23.3 % (38-53); Lymphocyte % 31.1 %; Mean Corpuscular Hemoglobin 31.3 pg (27-33); Mean Corpuscular Hgb Conc 34.4 g/dL (31-36); Mean Corpuscular Volume 90.9 fL (80-97); Mean Platelet Volume 9.2 fL (7.5-11.2); Platelet Count 90 10^3/uL (150-450); Red Blood Count 2.56 10^6/uL (4.06-5.63); Red Cell Distribution Width 16.1 % (12-17); White Blood Count 3.9 10^3/uL (3.6-10.2)
[2024-05-23 07:30] LABS: Calcium 8.6 mg/dL (8.6-10.3); Creatinine, Serum 3.29 mg/dL (0.67-1.17); Magnesium 1.6 mg/dL (1.9-2.7); Potassium 4.2 mmol/L (3.5-5.0); eGFR CKD-EPI 22.2 (>60)
[2024-05-23] MEDS: Magnesium Sulf 4 GM/100 ML IV 4,000 MG/100 ML BAG IVPB ONE (10:07)
[2024-05-24] MEDS: Albuterol HFA INHALER 8 gm MDI INH PRN (02:36)
[2024-05-24 06:55] LABS: Hematocrit 24.2 % (38-53); Hemoglobin 8.2 g/dL (13.2-16.3); Mean Corpuscular Hgb Conc 34.1 g/dL (31-36); Mean Platelet Volume 9.6 fL (7.5-11.2); Platelet Count 87 10^3/uL (150-450); Red Blood Count 2.66 10^6/uL (4.06-5.63); Red Cell Distribution Width 15.9 % (12-17)
[2024-05-24 07:22] LABS: Calcium 8.7 mg/dL (8.6-10.3); Creatinine, Serum 4.71 mg/dL (0.67-1.17); Magnesium 2.8 mg/dL (1.9-2.7); Potassium 4.3 mmol/L (3.5-5.0); eGFR CKD-EPI 14.5 (>60)
[2024-05-24 18:57] VITALS: BP 138/78
[2024-05-25] MEDS ORDERED: Vancomycin Random Level NOTE FOLLOW UP ONE (06:00)
== END 2024-05-24 21:09 | disposition home or self-care (01) | DRG 720 ==
LOC: ED 01:11 → EDHOLD 03:37 → SUATTDRO 03:37 → ICU 07:05 → MED 05-20 14:21
PROVIDERS: ADMIT Student in an Organized Health Care Education/Training Program; ATTEND Internal Medicine